=== PATIENT | male | born 1995 | race Caucasian/White ===

== ENCOUNTER 2022-05-28 14:06 | Emergency (ER) | payer OTHER, SELFPAY ==
--- NOTE | ~2022-05-28 | US_ITS ---
EXAMINATION: US ABDOMEN COMPLETE CLINICAL INFORMATION: Pain. COMPARISON: None TECHNIQUE: Real-time imaging of the abdominal viscera. FINDINGS: PANCREAS: Pancreas obscured by bowel gas not well visualized. ABDOMINAL AORTA: Abdominal aorta and IVC were not fully visualized partially obscured by bowel gas, the visualized portion is unremarkable. INFERIOR VENA CAVA: Visualized portions are normal. LIVER: The liver is normal in size. The liver contour is normal. There are diffusely echogenic possibly mild steatosis. No focal hepatic lesion. There is no intrahepatic biliary duct dilatation seen. GALLBLADDER: Normal. The gallbladder is physiologically distended without evidence of stones, sludge, polyps, wall thickening or pericholecystic fluid. COMMON BILE DUCT: Normal in caliber measuring 0.2 cm in diameter. RIGHT KIDNEY: Normal. No hydronephrosis. No renal calculi or focal parenchymal lesions. The kidney measures 10.3 cm in maximum dimension. LEFT KIDNEY: Normal. No hydronephrosis. No renal calculi or focal parenchymal lesions. The kidney measures 10.5 cm in maximum dimension. SPLEEN: Normal. The spleen measures 8.5 cm in maximum dimension. FREE FLUID: None. US/US abdomen complete IMPRESSION: Exam somewhat limited, bowel gas has obscured the pancreas, aorta, IVC and retroperitoneal structures. *No ultrasound evidence of gallbladder disease or gallstones. *Diffusely echogenic liver possibly mild steatosis.
--- NOTE | ~2022-05-28 | CT_ITS ---
EXAMINATION: CT abdomen pelvis w IV con CLINICAL INFORMATION: Reason for Exam epigastric pain COMPARISON: No prior CT available for comparison. TECHNIQUE: Multidetector volumetric imaging was performed from the superior aspect of the liver through the pubic symphysis 85 mL Omnipaque 350 injected Sagittal and coronal reformatted images were obtained on the technologist's workstation. This CT examination was performed using dose optimization techniques as appropriate, variously including the following: *Automated exposure control *Adjustment of mA and/or kV according to patient size (this includes techniques or standardized protocols for targeted exams where dose is matched to indication/reason for exam; i.e. extremities or head) *Use of iterative reconstruction technique DLP: 598 mGy-cm FINDINGS: LOWER THORAX: Included lung bases are clear. HEPATOBILIARY: No focal hepatic lesions. No biliary ductal dilatation. GALLBLADDER: Gallbladder unremarkable. SPLEEN: Spleen is normal in size. PANCREAS: No focal mass or ductal dilatation. STOMACH AND GASTROINTESTINAL TRACT: Stomach is grossly unremarkable. There is no bowel distention or thickening. No CT evidence of appendicitis. ADRENALS: No adrenal nodules. KIDNEYS/URETERS: No hydronephrosis, stones or solid mass lesions. URINARY BLADDER: Urinary bladder is distended. PELVIC VISCERA: Unremarkable PERITONEUM: No free air or fluid. LYMPH NODES: No lymphadenopathy. VASCULAR:Abdominal aorta normal in size, no aneurysm found. BONES, ABDOMINAL WALL AND SOFT TISSUES: Age-appropriate changes of the spine and skeletal system, no destructive osteolytic or osteosclerotic bone lesion found CT/CT abdomen pelvis w IV con IMPRESSION: 1. No CT evidence of acute intra-abdominal process to explain patient's pain symptoms. Normal appendix identified. 2. No evidence of bowel obstruction. No free air or fluid. 3. Distended urinary bladder.
--- NOTE | ~2022-05-28 | XR_ITS ---
EXAMINATION: XR CHEST CLINICAL INFORMATION: Pain COMPARISON: None TECHNIQUE: Frontal view of the chest was obtained. FINDINGS: No significant abnormality is noted involving the heart, lungs, mediastinum, bony thorax or soft tissues. XR/XR chest 1V IMPRESSION: Unremarkable examination.
[2022-05-28 15:48] VITALS: BP 138/79; PULSE 63; RESP 16; TEMP 36.5; O2SAT 98; BMI 28.2
--- NOTE | 2022-05-28 15:48 | ED_ITS ---
HPI - Abdominal Pain General Chief Complaint: Abdominal Pain <ARNOL Tee - Last Filed: 05/28/22 15:54> Stated Complaint: Abd pain <ARNOL Tee - Last Filed: 05/28/22 15:54> Time Seen by Provider: 05/28/22 16:18 <ARNOL Tee - Last Filed: 05/28/22 15:54> Source: patient <ARNOL Alberto - Last Filed: 05/28/22 20:02> Mode of arrival: ambulatory <ARNOL Alberto - Last Filed: 05/28/22 20:02> Limitations: no limitations <ARNOL Alberto Last Filed: 05/28/22 20:02> History of Present Illness HPI narrative: This is a 27-year-old male past medical history significant for hypertension presenting to the emergency department complaints of epigastric pain for about a week. Patient reports that the pain feels like a burning sensation without radiation, tells me it is very uncomfortable. Patient reports that he has a history of gastric ulcers/gastritis, this feels kind of like his typical flare. He tells me at times pain is worse with eating and at times feels burning in his chest. Reports some associated nausea however no vomiting. Tells me he has a heart issue and is followed by a desktop support consultant out of [facility]. Patient tells me he recently moved here from [facility] therefore he has not been taking his typical medications. He does not recall with these medications are. Patient denies chest pain, shortness of breath, vomiting, headache, vision changes, dizziness, poor p.o. intake, changes in bowel habits, changes in urination, testicular pain. <ARNOL Alberto Last Filed: 05/28/22 20:02> MD elicited complaint: abdominal pain <ARNOL Alberto Last Filed: 05/28/22 20:02> Related Data Home Medications: Previous Rx's Medication Instructions Recorded aluminum-mag hydroxide-simethicone 5 ml PO 5XD PRN dyspepsia #355 mL 05/28/22 200 mg-200 mg-20 mg/5 mL oral susp (Maalox Advanced) omeprazole 20 mg capsule,delayed 20 mg PO DAILY #30 caps 05/28/22 release <ARNOL Tee - Last Filed: 05/28/22 15:54> Allergies/Adverse Reactions: Allergies Allergy/AdvReac Type Severity Reaction Status Date / Time No Known Allergies Allergy Verified 05/28/22 15:52 <ARNOL Tee - Last Filed: 05/28/22 15:54> Review of Systems Review of Systems Constitutional : No Weight loss, No Fever, No Chills, No Fatigue, No Malaise ENT/Mouth : No sore throat, No Rhinorrhea Eyes: No Eye Pain, No Swelling, No Redness Cardiovascular : No Chest Pain, No SOB, No Dyspnea on Exertion, No Orthopnea, No Edema, No Palpitations Respiratory : No Cough, No Sputum, No Wheezing Gastrointestinal : No Nausea, No Vomiting, No Diarrhea, No Constipation, + abdominal Pain, No Hematochezia, No Melena Genitourinary : No Dysuria, No Urinary Frequency, No Hematuria, Musculoskeletal : No joint pain, No Myalgias, No Joint Swelling Skin : No Skin Lesions, No rash Neuro : No Weakness, No Numbness, No Dizziness, No Headache Psych : No Anxiety/Panic, No Depression All other systems reviewed and are negative <ARNOL Alberto - Last Filed: 05/28/22 20:02> Yes all other systems are reviewed and are negative <ARNOL Alberto - Last Filed: 05/28/22 20:02> PMFSH Past Medical History Attestation statement: The following information was validated with the patient. <ARNOL Alberto - Last Filed: 05/28/22 20:02> Source: old records reviewed and nursing notes reviewed <ARNOL Alberto - Last Filed: 05/28/22 20:02> Social History Social History: Social History Advance Directives: No Advance Directives Information Provided: No <ARNOL Tee - Last Filed: 05/28/22 15:54> Physical Exam ED Vital Signs: Vital Signs - 24 hr 05/28/22 15:48 Temperature 97.7 F Pulse Rate 63 Respiratory Rate 16 Blood Pressure 138/79 Pulse Oximetry 98 Oxygen Delivery Method Room Air BMI result Body Mass Index 28.2 <ARNOL Tee - Last Filed: 05/28/22 15:54> Vital Signs - 24 hr 05/28/22 15:48 Temperature 97.7 F Pulse Rate 63 Respiratory Rate 16 Blood Pressure 138/79 Pulse Oximetry 98 Oxygen Delivery Method Room Air BMI result Body Mass Index 28.2 vss <ARNOL Alberto - Last Filed: 05/28/22 20:02> Appearance: Alert.? Oriented X3.? No acute distress.? Head: Normocephalic, atraumatic, no step-offs or deformities Eyes: Pupils equal, round and reactive to light.? Neck: Normal inspection.? Neck supple.? CVS: Normal heart rate and rhythm.? Pulses normal.? Respiratory: No respiratory distress.? Breath sounds normal.? Abdomen: Soft and + tenderness to epigastric region.? Skin: Skin warm and dry.? Normal skin color.? Normal skin turgor.? Extremities: No lower extremity edema.? No calf ttp. 5/5 strength to bilateral upper and lower extremities Neuro: Oriented X 3.? No motor deficit.? No sensory deficit. CN 2-12 intact <ARNOL Alberto - Last Filed: 05/28/22 20:02> Course Reevaluation(s) Reevaluation #1: RME - 27yoM [place] speaking x PMHx of HTN presenting to the ED c c/o of epigastric abd pain c associated nausea x 5 days. Believes its related to gastritis/GERD has [place] end[place]. [place] in [place] unknown results. ? valve that doesnt work well per pt. Plan: Labs, CXR, EKG, abd US. Pt sent back to [facility]. Pt is stable. <ARNOL Tee - Last Filed: 05/28/22 15:54> Time: 15:49 <ARNOL Tee - Last Filed: 05/28/22 15:54> Reevaluation #2: CBC appears to be within normal limits. Chemistry with no acute electrolyte abnormalities requiring intervention. Total bilirubin of 2.3. Troponin negative, EKG nonischemic unlikely ACS.. Coags within normal limits. Ultrasound of abdomen with no ultrasound evidence of gallbladder disease or gallstones. Chest x-ray unremarkable. Pending CT of the abdomen and pelvis and re-evaluation. <ARNOL Alberto - Last Filed: 05/28/22 20:02> Time: 19:10 <ARNOL Alberto - Last Filed: 05/28/22 20:02> Reevaluation #3: No acute findings on CT of the abdomen and pelvis. P.o. challenge done and patient tolerated fluids and food well. Repeat exam with no epigastric tenderness patient reports feeling much better at this time. Symptom free. Will discharge him home with GI follow-up. Educated on worrisome signs and symptoms and when to return. Comfortable discharge <ARNOL Alberto - Last Filed: 05/28/22 20:02> Time: 20:01 <ARNOL Alberto - Last Filed: 05/28/22 20:02> Medications Administered Discontinued Medications Generic Name Dose Route Start Last Admin Trade Name Freq PRN Reason Stop Dose Admin Al Hydroxide/Mg Hydroxide 30 ml 05/28/22 17:30 05/28/22 17:45 Magnesium Hydrox/Alum Hydrox 30 Ml Oral.Susp PO 05/28/22 17:31 30 ml ONCE ONE Administration Belladonna Alkaloids/Phenobarbital 10 ml 05/28/22 17:30 05/28/22 17:45 Phenobarb/Hyoscy/Atropine/Scop 10 Ml Elixir PO 05/28/22 17:31 10 ml ONCE ONE Administration Sodium Chloride 1,000 mls @ 999 mls/hr 05/28/22 17:45 05/28/22 17:45 Ns IV 05/28/22 18:45 999 mls/hr .Q1H1M IVA Administration Iohexol 100 ml 05/28/22 19:00 05/28/22 19:00 Iohexol 350 Mg/Ml 100 Ml Infus..Btl IV 05/28/22 19:01 85 ml ONCE ONE Administration Ondansetron HCl 4 mg 05/28/22 17:30 05/28/22 17:45 Ondansetron Odt 4 Mg Tab.Rapdis TRANSLINGU 05/28/22 17:31 4 mg ONCE ONE Administration <ARNOL Tee - Last Filed: 05/28/22 15:54> Medications Administered Discontinued Medications Generic Name Dose Route Start Last Admin Trade Name Freq PRN Reason Stop Dose Admin Al Hydroxide/Mg Hydroxide 30 ml 05/28/22 17:30 05/28/22 17:45 Magnesium Hydrox/Alum Hydrox 30 Ml Oral.Susp PO 05/28/22 17:31 30 ml ONCE ONE Administration Belladonna Alkaloids/Phenobarbital 10 ml 05/28/22 17:30 05/28/22 17:45 Phenobarb/Hyoscy/Atropine/Scop 10 Ml Elixir PO 05/28/22 17:31 10 ml ONCE ONE Administration Sodium Chloride 1,000 mls @ 999 mls/hr 05/28/22 17:45 05/28/22 17:45 Ns IV 05/28/22 18:45 999 mls/hr .Q1H1M IVA Administration Iohexol 100 ml 05/28/22 19:00 05/28/22 19:00 Iohexol 350 Mg/Ml 100 Ml Infus..Btl IV 05/28/22 19:01 85 ml ONCE ONE Administration Ondansetron HCl 4 mg 05/28/22 17:30 05/28/22 17:45 Ondansetron Odt 4 Mg Tab.Rapdis TRANSLINGU 05/28/22 17:31 4 mg ONCE ONE Administration <ARNOL Alberto - Last Filed: 05/28/22 20:02> MDM - Abdominal Pain MDM Narrative Medical decision making narrative: 1620 This 27-year-old male presents with epigastric pain for about a week worsening, reports he has a history of gastric ulcers gastritis, pain worse with eating, some associated nausea. Physical examination benign. TTP to epigastric region. Regular rate and rhythm. Lungs clear. Neuro nonfocal. Hemodynamically stable. Likely gastritis versus GERD versus gastric ulcers. Unlikely acute abdomen, appendicitis, cholecystitis, pancreatitis. Will obtain basic labs, urine, imaging was ordered from triage. <ARNOL Alberto - Last Filed: 05/28/22 20:02> Medical Records Attestation: I reviewed the patient's medical records. <ARNOL Alberto - Last Filed: 05/28/22 20:02> Lab Data Attestation: I reviewed the patient's lab results. <ARNOL Alberto - Last Filed: 05/28/22 20:02> Result diagrams: : 05/28/22 16:44 05/28/22 16:44 <ARNOL Tee - Last Filed: 05/28/22 15:54> Labs: Lab Results 05/28/22 05/28/22 05/28/22 Range/Units 16:44 16:44 16:44 WBC 7.3 (4.8-10.8) X10*3/uL RBC 4.95 (4.60-5.80) X10*6/uL Hgb 15.5 (14.0-18.0) g/dl Hct 45.4 (42.0-52.0) % MCV 91.7 (80.0-98.0) fL MCH 31.3 (27.0-33.0) pg MCHC 34.1 (31.0-36.0) g/dl RDW 11.9 (11.0-16.0) % Plt Count 188 (160-400) X10*3/uL MPV 11.8 (9.4-12.4) fL Immature Gran % (Auto) 0.1 (0.0-0.4) % Neut % (Auto) 47.7 (45-73) % Lymph % (Auto) 40.3 H (20-40) % [place] % (Auto) 10.3 (2-11) % Eos % (Auto) 1.5 (0-4) % Baso % (Auto) 0.1 (0-2) % Lymph # (Auto) 2.9 (1.2-4.9) X10*3/uL [place] # (Auto) 0.8 (0.1-1.2) X10*3/uL Eos # (Auto) 0.1 (0.0-0.4) X10*3/uL Baso # (Auto) 0.0 (0.0-0.2) X10*3/uL Abs Immat Gran (auto) 0.01 (0.00-0.03) X10*3/uL Absolute Neuts (auto) 3.5 (2.0-8.3) x10*3/uL Absolute Nucleated RBC 0.000 (0.0-0.012) X10*3/uL Nucleated RBC % (auto) 0.0 (0.0-0.2) /100WBC PT 10.7 (10.0-13.1) SEC INR 0.9 (0.9-1.1) Sodium 140 (135-145) mmol/L Potassium 4.2 (3.3-5.1) mmol/L Chloride 103 (96-108) mmol/L Carbon Dioxide 26 (22-29) mmol/L Anion Gap 15 (12-20) BUN 15 (9-16) mg/dL Creatinine 1.24 (0.5-1.4) mg/dL Estim Creat Clear Calc 90.8 Estimated GFR > 60 Random Glucose 92 (60-115) mg/dL Calcium 9.5 (8.4-10.2) mg/dL Magnesium 2.2 (1.6-2.6) mg/dL Total Bilirubin 2.3 H (0.0-1.0) mg/dL AST 29 (5-37) U/L ALT 29 (0-40) U/L Alkaline Phosphatase 60 (39-117) U/L Lactate Dehydrogenase 225 (118-273) U/L Troponin I High Sens (<3.5-35.0) ng/L Total Protein 8.1 H (6.5-8.0) g/dL Albumin 4.6 (3.5-5.0) g/dL Lipase 65 (8-78) U/L Hold [facility] 05/28/22 05/28/22 Range/Units 16:44 16:44 WBC (4.8-10.8) X10*3/uL RBC (4.60-5.80) X10*6/uL Hgb (14.0-18.0) g/dl Hct (42.0-52.0) % MCV (80.0-98.0) fL MCH (27.0-33.0) pg MCHC (31.0-36.0) g/dl RDW (11.0-16.0) % Plt Count (160-400) X10*3/uL MPV (9.4-12.4) fL Immature Gran % (Auto) (0.0-0.4) % Neut % (Auto) (45-73) % Lymph % (Auto) (20-40) % [place] % (Auto) (2-11) % Eos % (Auto) (0-4) % Baso % (Auto) (0-2) % Lymph # (Auto) (1.2-4.9) X10*3/uL [place] # (Auto) (0.1-1.2) X10*3/uL Eos # (Auto) (0.0-0.4) X10*3/uL Baso # (Auto) (0.0-0.2) X10*3/uL Abs Immat Gran (auto) (0.00-0.03) X10*3/uL Absolute Neuts (auto) (2.0-8.3) x10*3/uL Absolute Nucleated RBC (0.0-0.012) X10*3/uL Nucleated RBC % (auto) (0.0-0.2) /100WBC PT (10.0-13.1) SEC INR (0.9-1.1) Sodium (135-145) mmol/L Potassium (3.3-5.1) mmol/L Chloride (96-108) mmol/L Carbon Dioxide (22-29) mmol/L Anion Gap (12-20) BUN (9-16) mg/dL Creatinine (0.5-1.4) mg/dL Estim Creat Clear Calc Estimated GFR Random Glucose (60-115) mg/dL Calcium (8.4-10.2) mg/dL Magnesium (1.6-2.6) mg/dL Total Bilirubin (0.0-1.0) mg/dL AST (5-37) U/L ALT (0-40) U/L Alkaline Phosphatase (39-117) U/L Lactate Dehydrogenase (118-273) U/L Troponin I High Sens < 3.5 (<3.5-35.0) ng/L Total Protein (6.5-8.0) g/dL Albumin (3.5-5.0) g/dL Lipase (8-78) U/L Hold [place] See Note <ARNOL Tee - Last Filed: 05/28/22 15:54> Lab Results 05/28/22 05/28/22 05/28/22 Range/Units 16:44 16:44 16:44 WBC 7.3 (4.8-10.8) X10*3/uL RBC 4.95 (4.60-5.80) X10*6/uL Hgb 15.5 (14.0-18.0) g/dl Hct 45.4 (42.0-52.0) % MCV 91.7 (80.0-98.0) fL MCH 31.3 (27.0-33.0) pg MCHC 34.1 (31.0-36.0) g/dl RDW 11.9 (11.0-16.0) % Plt Count 188 (160-400) X10*3/uL MPV 11.8 (9.4-12.4) fL Immature Gran % (Auto) 0.1 (0.0-0.4) % Neut % (Auto) 47.7 (45-73) % Lymph % (Auto) 40.3 H (20-40) % [place] % (Auto) 10.3 (2-11) % Eos % (Auto) 1.5 (0-4) % Baso % (Auto) 0.1 (0-2) % Lymph # (Auto) 2.9 (1.2-4.9) X10*3/uL [place] # (Auto) 0.8 (0.1-1.2) X10*3/uL Eos # (Auto) 0.1 (0.0-0.4) X10*3/uL Baso # (Auto) 0.0 (0.0-0.2) X10*3/uL Abs Immat Gran (auto) 0.01 (0.00-0.03) X10*3/uL Absolute Neuts (auto) 3.5 (2.0-8.3) x10*3/uL Absolute Nucleated RBC 0.000 (0.0-0.012) X10*3/uL Nucleated RBC % (auto) 0.0 (0.0-0.2) /100WBC PT 10.7 (10.0-13.1) SEC INR 0.9 (0.9-1.1) Sodium 140 (135-145) mmol/L Potassium 4.2 (3.3-5.1) mmol/L Chloride 103 (96-108) mmol/L Carbon Dioxide 26 (22-29) mmol/L Anion Gap 15 (12-20) BUN 15 (9-16) mg/dL Creatinine 1.24 (0.5-1.4) mg/dL Estim Creat Clear Calc 90.8 Estimated GFR > 60 Random Glucose 92 (60-115) mg/dL Calcium 9.5 (8.4-10.2) mg/dL Magnesium 2.2 (1.6-2.6) mg/dL Total Bilirubin 2.3 H (0.0-1.0) mg/dL AST 29 (5-37) U/L ALT 29 (0-40) U/L Alkaline Phosphatase 60 (39-117) U/L Lactate Dehydrogenase 225 (118-273) U/L Troponin I High Sens (<3.5-35.0) ng/L Total Protein 8.1 H (6.5-8.0) g/dL Albumin 4.6 (3.5-5.0) g/dL Lipase 65 (8-78) U/L Hold [place] 05/28/22 05/28/22 Range/Units 16:44 16:44 WBC (4.8-10.8) X10*3/uL RBC (4.60-5.80) X10*6/uL Hgb (14.0-18.0) g/dl Hct (42.0-52.0) % MCV (80.0-98.0) fL MCH (27.0-33.0) pg MCHC (31.0-36.0) g/dl RDW (11.0-16.0) % Plt Count (160-400) X10*3/uL MPV (9.4-12.4) fL Immature Gran % (Auto) (0.0-0.4) % Neut % (Auto) (45-73) % Lymph % (Auto) (20-40) % [place] % (Auto) (2-11) % Eos % (Auto) (0-4) % Baso % (Auto) (0-2) % Lymph # (Auto) (1.2-4.9) X10*3/uL [place] # (Auto) (0.1-1.2) X10*3/uL Eos # (Auto) (0.0-0.4) X10*3/uL Baso # (Auto) (0.0-0.2) X10*3/uL Abs Immat Gran (auto) (0.00-0.03) X10*3/uL Absolute Neuts (auto) (2.0-8.3) x10*3/uL Absolute Nucleated RBC (0.0-0.012) X10*3/uL Nucleated RBC % (auto) (0.0-0.2) /100WBC PT (10.0-13.1) SEC INR (0.9-1.1) Sodium (135-145) mmol/L Potassium (3.3-5.1) mmol/L Chloride (96-108) mmol/L Carbon Dioxide (22-29) mmol/L Anion Gap (12-20) BUN (9-16) mg/dL Creatinine (0.5-1.4) mg/dL Estim Creat Clear Calc Estimated GFR Random Glucose (60-115) mg/dL Calcium (8.4-10.2) mg/dL Magnesium (1.6-2.6) mg/dL Total Bilirubin (0.0-1.0) mg/dL AST (5-37) U/L ALT (0-40) U/L Alkaline Phosphatase (39-117) U/L Lactate Dehydrogenase (118-273) U/L Troponin I High Sens < 3.5 (<3.5-35.0) ng/L Total Protein (6.5-8.0) g/dL Albumin (3.5-5.0) g/dL Lipase (8-78) U/L Hold Green Top See Note <ARNOL Alberto - Last Filed: 05/28/22 20:02> Critical Care Time Critical Care Time Critical Care Time: No <ARNOL Alberto - Last Filed: 05/28/22 20:02> Discharge Plan Discharge Clinical Impression: GERD (gastroesophageal reflux disease), Acute epigastric pain <ARNOL Tee Last Filed: 05/28/22 15:54> Patient Disposition: Home, Self-Care <ARNOL Tee Last Filed: 05/28/22 15:54> Instructions: Gastroesophageal Reflux Disease (ED), Epigastric Pain (ED) <ARNOL Tee Last Filed: 05/28/22 15:54> Additional Instructions: Take your medications as prescribed. If you were prescribed antibiotics today, it is important that you take your medication to their entirety, do not skip any doses, do not finish them early. Follow-up with your primary care provider this week. Please follow-up with gastroenterology. Return to the emergency department with new or worsening symptoms. Such as fevers, chills, chest pain, shortness of breath, nausea, vomiting, dizziness, headache, vision changes, lethargy In case of emergency call 911 [place] [facility] seg?n lo prescrito. Si le recetaron antibi?ticos hoy, es importante que tome echavarria medicamento en echavarria totalidad, no se salte ninguna dosis, no los termine antes de tiempo. Seguimiento con echavarria proveedor de atenci?n primaria esta semana. Por favor, seguimiento con gastroenterolog?a. Regrese al departamento de emergencias con s?ntomas nuevos o que empeoran. Dav fiebre, escalofr?os, dolor de pecho, dificultad para respirar, n?useas, v?mitos, mareos, dolor de maria antonia, cambios en la visi?n, letargo En loly de emergencia llama al 911 CT/CT abdomen pelvis w IV con IMPRESSION: 1.? No CT evidence of acute intra-abdominal process to explain patient's pain symptoms. Normal appendix identified. 2.? No evidence of bowel obstruction. No free air or fluid. 3.? Distended urinary bladder. ?US/US abdomen complete IMPRESSION: Exam somewhat limited, bowel gas has obscured the pancreas, aorta, IVC and retroperitoneal structures. ? ? *No ultrasound evidence of gallbladder disease or gallstones. ? *Diffusely echogenic liver possibly mild steatosis. ?XR/XR chest 1V IMPRESSION: Unremarkable examination. <ARNOL Tee - Last Filed: 05/28/22 15:54> Prescriptions: New omeprazole 20 mg capsule,delayed release(DR/EC) 20 mg PO DAILY Qty: 30 0RF alum-mag hydroxide-simeth [Maalox Advanced] 200-200-20 mg/5 mL suspension 5 ml PO 5XD PRN (Reason: dyspepsia) Qty: 355 0RF Rx Instructions: administer between meals and at bedtime <ARNOL Tee - Last Filed: 05/28/22 15:54> Referrals: [facility] [place] [facility] [Provider Group] - 2 days Physician,Unknown J [Primary Care Provider] - 2 days <ARNOL Tee - Last Filed: 05/28/22 15:54> Stand Alone Forms: Work/School Release <ARNOL Tee - Last Filed: 05/28/22 15:54>
--- NOTE | 2022-05-28 16:35 | ECG_ITS ---
Test Reason : ABDOMINAL PAIN Blood Pressure : / mmHG Vent. Rate : 056 BPM Atrial Rate : 056 BPM P-R Int : 164 ms QRS Dur : 088 ms QT Int : 400 ms P-R-T Axes : 042 002 -01 degrees QTc Int : 386 ms Sinus bradycardia Intra-ventricular conduction delay Borderline ECG No previous ECGs available Referred By: Angela Maldonado Electronically Signed By:ROX CAGLE MD
[2022-05-28 16:51] LABS: MANUAL DIFF FLAG NO
[2022-05-28 17:03] LABS: INTERNATIONAL NORM RATIO 0.9 (0.9-1.1); Prothrombin Time 10.7 SEC (10.0-13.1)
[2022-05-28 17:11] LABS: Basophils Percent Auto 0.1 % (0-2); Eosinophils Absolute Auto 0.1 X10*3/uL (0.0-0.4); Eosinophils Percent Auto 1.5 % (0-4); Hematocrit 45.4 % (42.0-52.0); Hemoglobin 15.5 g/dl (14.0-18.0); Imm Gran Abs Auto 0.01 X10*3/uL (0.00-0.03); Imm Gran Pct Auto 0.1 % (0.0-0.4); Lymphocytes Absolute Auto 2.9 X10*3/uL (1.2-4.9); Lymphocytes Percent Auto 40.3 % (20-40); Mean Corpuscular HGB Conc 34.1 g/dl (31.0-36.0); Mean Corpuscular Hemoglobin 31.3 pg (27.0-33.0); Mean Corpuscular Volume 91.7 fL (80.0-98.0); Mean Platelet Volume 11.8 fL (9.4-12.4); Monocytes Absolute Auto 0.8 X10*3/uL (0.1-1.2); Monocytes Percent Auto 10.3 % (2-11); Neutrophils Absolute Auto 3.5 x10*3/uL (2.0-8.3); Neutrophils Percent Auto 47.7 % (45-73); Platelet Count 188 X10*3/uL (160-400); Red Blood Count 4.95 X10*6/uL (4.60-5.80); Red Cell Distribution Width 11.9 % (11.0-16.0); White Blood Count 7.3 X10*3/uL (4.8-10.8)
[2022-05-28 17:13] LABS: Alanine Aminotransferase 29 U/L (0-40); Albumin Level 4.6 g/dL (3.5-5.0); Alkaline Phosphatase 60 U/L (39-117); Anion Gap 15 (12-20); Aspartate Amino Transferase 29 U/L (5-37); Bilirubin Total 2.3 mg/dL (0.0-1.0); Blood Urea Nitrogen 15 mg/dL (9-16); Calcium 9.5 mg/dL (8.4-10.2); Carbon Dioxide 26 mmol/L (22-29); Chloride 103 mmol/L (96-108); Creatinine Clr Calc Pharmacy 90.8; Estimated Glomerular Filt Rate > 60; Glucose Random 92 mg/dL (60-115); Lactate Dehydrogenase 225 U/L (118-273); Lipase 65 U/L (8-78); Magnesium 2.2 mg/dL (1.6-2.6); Potassium 4.2 mmol/L (3.3-5.1); Sodium 140 mmol/L (135-145); Total Protein 8.1 g/dL (6.5-8.0)
[2022-05-28 17:15] LABS: Troponin-I High Sensitivity < 3.5 ng/L (<3.5-35.0)
[2022-05-28] MEDS: Magnesium Hydrox/Alum Hydrox 30 ML ORAL.SUSP PO (17:45)
[2022-05-28] MEDS: PHENobarb/Hyoscy/Atropine/Scop 10 ML ELIXIR PO (17:45)
[2022-05-28] MEDS: 0.9 % Sodium Chloride 1,000 ML 999 ML IV (17:45)
[2022-05-28] MEDS: Ondansetron ODT 4 MG TAB.RAPDIS TRANSLINGU (17:45)
[2022-05-28] MEDS: iohexoL 350 MG/ML 100 ML INFUS..BTL IV (19:00)
== END 2022-05-28 20:12 | disposition home or self-care (01) ==
PROVIDERS: Physician Assistant; Physician Assistant Medical; Emergency Provider Emergency Medicine
DX: K21.9 Gastro-esophageal reflux disease without esophagitis (principal); R10.13 Epigastric pain; R11.0 Nausea; I10 Essential (primary) hypertension
CPT/HCPCS: 36415; 71045; 74177; 76700; 80053; 83615; 83690; 83735; 84484; 85025; 85610; 93005; 99284; Q9967

== ENCOUNTER 2022-06-05 11:58 | Emergency (ER) | payer OTHER, SELFPAY ==
--- NOTE | 2022-06-05 12:10 | ED.GENADULT ---
HPI - General Adult General Chief complaint: General Medical Stated complaint: Medication refill Time Seen by Provider: 06/05/22 12:04 Source: patient and park interpreter Mode of arrival: ambulatory Limitations: no limitations History of Present Illness HPI narrative: 27-year-old male presents to the ER requesting a medication refill. He states he has been on bisoprolol fumarate 10 mg and his prescription was just stool and on his mailbox. He has not had for 3 days and reports feeling some palpitations. He is here requesting a refill. He denies any other physical complaints. MD complaint: Medication refill Onset (ago): day(s) (3) Radiation: non-radiation Severity: mild Pain Consistency: intermittent Relieving factors: none Exacerbating factors: none Associated symptoms: denies other symptoms Treatments prior to arrival: none Related Data Previous Rx's Medication Instructions Recorded aluminum-mag hydroxide-simethicone 5 ml PO 5XD PRN dyspepsia #355 mL 05/28/22 200 mg-200 mg-20 mg/5 mL oral susp (Maalox Advanced) omeprazole 20 mg capsule,delayed 20 mg PO DAILY #30 caps 05/28/22 release bisoprolol fumarate 10 mg tablet 10 mg PO DAILY #30 tabs 06/05/22 Allergies Allergy/AdvReac Type Severity Reaction Status Date / Time No Known Allergies Allergy Verified 06/05/22 12:14 Review of Systems Review of Systems: Constitutional: No Fever, No Chills Cardiovascular: No Chest Pain, No SOB, No Orthopnea, No Edema, +palpitations Respiratory: No Cough, No Sputum Gastrointestinal: No Nausea, No Vomiting, No Diarrhea, No abdominal Pain Musculoskeletal: No joint pain, No Myalgias Neuro: No Weakness, No Numbness, No Dizziness, No Headache Psych:+Anxiety/Panic, No Depression PMFSH Social History Social History Advance Directives: No Advance Directives Information Provided: No Physical Exam ED Vital Signs: Vital Signs - 24 hr 06/05/22 12:16 Temperature 97.0 F Pulse Rate 63 Respiratory Rate 16 Blood Pressure 119/71 Pulse Oximetry 99 Oxygen Delivery Method Room Air BMI result Body Mass Index 25.7 Appearance: Alert. Oriented X3. No acute distress. HEENT: normal external inspection CVS: Normal heart rate and rhythm. Pulses normal. Respiratory: No respiratory distress. Speaks in complete sentences. Skin: Skin warm and dry. Normal skin color. Normal skin turgor. No rashes. Extremities: Normal inspection x4, normal range of motion. Neuro: Oriented X 3 grossly normal, nonfocal, steady gait. Course Course Course Narrative: 27-year-old male with history of hypertension presents to the ER for refill of his beta-angelo. His prescription recently still 1 out of his mailbox when he had it sent to his house. He has been without for 3 days. On arrival to the ER his vital signs are stable, and no tachycardia. BP 119/71. He appears well. Exam unremarkable. Will send 1 month's worth of his antihypertensive medication to [facility]. He will follow-up with his PCP for additional refills. Stable for DC. Discharge Plan Discharge Clinical Impression: Encounter for medication refill Patient Disposition: Home, Self-Care Instructions: Hypertension (ED) Additional Instructions: One month supply of bisoprolol has been sent to [facility] on [facility] . Follow-up with her primary care doctor for refills. Prescriptions: New bisoprolol fumarate 10 mg tablet 10 mg PO DAILY Qty: 30 0RF No Action omeprazole 20 mg capsule,delayed release(DR/EC) 20 mg PO DAILY Qty: 30 0RF alum-mag hydroxide-simeth [Maalox Advanced] 200-200-20 mg/5 mL suspension 5 ml PO 5XD PRN (Reason: dyspepsia) Qty: 355 0RF Rx Instructions: administer between meals and at bedtime Print Language: [place]
[2022-06-05 12:16] VITALS: BP 119/71; PULSE 63; RESP 16; TEMP 36.1; O2SAT 99; BMI 25.7
== END 2022-06-05 12:53 | disposition home or self-care (01) ==
PROVIDERS: Emergency Provider Emergency Medicine Emergency Medical Services
DX: Z76.0 Encounter for issue of repeat prescription (principal); Z79.899 Other long term (current) drug therapy
CPT/HCPCS: 99283

== ENCOUNTER 2022-09-20 09:42 | Emergency (ER) | payer OTHER, SELFPAY ==
[2022-09-20 09:59] VITALS: BP 139/74; PULSE 58; RESP 16; TEMP 36.1; O2SAT 97; BMI 38.8
[2022-09-20] MEDS: Cyclobenzaprine HCl 10 MG TABLET PO (13:02)
[2022-09-20] MEDS: Lidocaine 4 % Patch ADH..PATCH 1 PATCH TRANSDERMA (13:04)
[2022-09-20] MEDS: Ketorolac Tromethamine 30 MG/ML VIAL IM (13:04)
[2022-09-20 13:16] LABS: Appearance Urine Clear; Color Urine Yellow; Glucose Urine UA Negative (Negative); Leukocyte Esterase Urine Negative (Negative); Nitrite Urine Negative (Negative); PH 6.5 (5.0-9.0); Specific Gravity - Urine 1.025 (1.005-1.025); Urine Blood Negative (Negative); Urine Ketones Negative (Negative); Urine Protein Negative (Neg-Trace)
--- NOTE | 2022-09-20 14:03 | ED_ITS ---
HPI - Back Pain/Injury General Chief Complaint: Back Pain/Injury Stated Complaint: Back pain Time Seen by Provider: 09/20/22 12:33 Source: patient Mode of arrival: ambulatory History of Present Illness HPI Narrative: 27-year-old male with no significant past medical history presenting to the ED complaining of a mid/low back pain radiating up back x2 months. Reports plays football which may have exacerbated/started symptoms. Denies direct injury/trauma or fall, CP/SOB, hematuria/dysuria, numbness/tingling, weakness, urinary incontinence/retention MD elicited complaint: back pain Onset (ago): month(s) Related Data Previous Rx's Medication Instructions Recorded aluminum-mag hydroxide-simethicone 5 ml PO 5XD PRN dyspepsia #355 mL 05/28/22 200 mg-200 mg-20 mg/5 mL oral susp (Maalox Advanced) omeprazole 20 mg capsule,delayed 20 mg PO DAILY #30 caps 05/28/22 release bisoprolol fumarate 10 mg tablet 10 mg PO DAILY #30 tabs 06/05/22 acetaminophen 500 mg tablet 500 mg PO Q6H PRN fever or pain 09/20/22 (Tylenol Extra Strength) #14 tabs cyclobenzaprine 5 mg tablet 5 mg PO Q8H PRN pain (scale score 09/20/22 7-10) 5 days #14 tabs lidocaine 5 % topical patch 1 patch topical DAILY PRN pain #30 09/20/22 (Lidoderm) ea naproxen 500 mg tablet 500 mg PO BID PRN pain 10 days #20 09/20/22 tabs Allergies Allergy/AdvReac Type Severity Reaction Status Date / Time No Known Allergies Allergy Verified 06/05/22 12:14 Review of Systems Review of Systems: Constitutional: No Weight loss, No Fever, No Chills ENT/Mouth: No Ear Pain, No Nasal Congestion, No Sinus Pain, No Hoarseness, No sore throat, No Rhinorrhea, No Swallowing Difficulty Cardiovascular: No Chest Pain, No SOB Respiratory: No Cough, No Sputum Gastrointestinal: No Nausea, No Vomiting, No Abdominal pain Genitourinary: No Dysuria, No Urinary Frequency, No Hematuria, No Urinary Incontinence/retention, No Flank Pain Musculoskeletal:+ joint pain, No Myalgias, No Joint Swelling Skin: No Skin Lesions, No rash Neuro: No Weakness, No Numbness, No Paresthesias Yes all other systems are reviewed and are negative Constitutional: Constitutional: Reports as per [facility] Past Medical History Attestation statement: The following information was validated with the patient. Social History Social History Advance Directives: No Advance Directives Information Provided: No Physical Exam Vital Signs: Vital Signs: Last Vital Signs Temp 97 F 09/20/22 09:59 Pulse 58 09/20/22 09:59 Resp 16 09/20/22 09:59 BP 139/74 09/20/22 09:59 Pulse Ox 97 09/20/22 09:59 O2 Del Method 09/20/22 09:59 BMI result Body Mass Index 38.8 Const: General: cooperative, healthy appearing and no acute distress Orientation/consciousness: patient oriented x3 Limitations: no limitations HEENT: Head: Yes normal to inspection and Yes atraumatic Ears: hearing grossly normal bilaterally General nose exam: Normal external nose present Face and sinus: Yes normal facial exam Eyes: General: appearance normal, both eyes and all related structures EOM: EOMs intact bilaterally Neck: Neck: Yes normal visual inspection and Yes no meningeal signs Resp: Effort & Inspection: normal respiratory effort and no respiratory distress Auscultation: clear to auscultation bilaterally Cardio: Rate: regular rate Heart sounds: S1 normal heart sound present and S2 normal heart sound present GI: Inspection: Yes normal to inspection Palpation (GI): Soft to palpation, nontender, no guarding and not rigid : General: Yes no CVA tenderness Back/Spine/Pelvis: Other: No midline thoracic/lumbar spinous tenderness/step-off or deformity. + bilateral lower thoracic/upper lumbar MSK tenderness to palpation. Back: no CVA tenderness Cervical Spine: cervical ROM normal and No cervical muscular tenderness Skin: Rashes: no rashes Wounds: no wounds Neuro: Other: Strength intact throughout. No saddle anesthesia. Sensation intact to light touch. Neurovascular intact distally General: patient oriented x3, gait normal, tone normal, moves all extremities, no meningeal signs and no focal motor deficits Gait exam (Neuro): Normal gait present Motor exam (neuro): 5/5 motor strength present throughout Extrem: General: Yes normal to inspection Course Course Course Narrative: -UA unremarkable, no blood. Patient reports symptomatic improvement after medications given in the ED. Results discussed with patient including worrisome signs and symptoms and strict return precautions, and when to return to the emergency department. They verbalized understanding and feel safe for discharge at this time. Medications Administered Discontinued Medications Generic Name Dose Route Start Last Admin Trade Name Aisha PRN Reason Stop Dose Admin Cyclobenzaprine HCl 10 mg 09/20/22 12:50 09/20/22 13:02 Cyclobenzaprine Hcl 10 Mg Tablet PO 09/20/22 12:51 10 mg ONCE ONE Administration Ketorolac Tromethamine 30 mg 09/20/22 12:50 09/20/22 13:04 Ketorolac Tromethamine 30 Mg/Ml Vial IM 09/20/22 12:51 30 mg ONCE ONE Administration Lidocaine 1 patch 09/20/22 12:50 09/20/22 13:04 Lidocaine 4 % Patch Adh..Patch TRANSDERMA 09/20/22 12:51 1 patch ONCE ONE Administration Protocol Medical Decision Making Medical Decision Making [facility] Narrative: 27-year-old male with no significant past medical history presenting to the ED complaining of a mid/low back pain radiating up back x2 months. On exam vital signs stable, NAD, nontoxic appearing, no midline spinous tenderness throat or red flag symptoms. MSK tenderness reproducible, no CVAT. No focal deficits, N/C with steady gait. Concern for MSK pain/strain vs ? Renal stone/pyelo. Lower suspicion for cauda equina/cord compression, epidural abscess, PE/pneumonia Plan: UA, pain control Please refer to course for remaining clinical decision making, interpretation of labs/imaging results, and discussions with consultants and/or family members. Differential Diagnosis Differential Diagnoses: The differential diagnosis associated with the presentation includes as above Lab Data [facility] Lab Attestation statement: I reviewed the patient's lab results. Labs: Lab Results 09/20/22 Range/Units 12:58 Urine Color Yellow Urine Appearance Clear Urine pH 6.5 (5.0-9.0) Ur Specific [place] 1.025 (1.005-1.025) Urine Protein Negative (Neg-Trace) mg/dL Urine Glucose (UA) Negative (Negative) mg/dL Urine Ketones Negative (Negative) mg/dL Urine Blood Negative (Negative) Urine Nitrite Negative (Negative) Ur Leukocyte Esterase Negative (Negative) Prescription Management I considered prescription management with: Pain Medication Discharge Plan Discharge Clinical Impression: Thoracic back pain Patient Disposition: Home, Self-Care Instructions: Thoracic Pain (ED) Additional Instructions: Your pain is likely musculoskeletal Flexeril is a muscle relaxer, take at night as it makes you drowsy, do not d rive, drink alcohol, or operate machinery while taking it Naproxen as an anti-inflammatory / pain medication, take with food Lidoderm patches are numbing patches, apply to painful area In addition take Tylenol at home If symptoms persist or worsen, pain becomes unbearable, you developed urinary retention or incontinence, or weakness return to the ED Es probable que echavarria dolor sea musculoesquel?flash Flexeril es un relajante muscular, t?sammy por la noche ya que te adormece, no conduzcas, bebas alcohol ni operes maquinaria mientras lo wilmer. Naproxeno fernando medicamento antiinflamatorio/analg?sico, t?hines con alimentos Los parches de Lidoderm son parches anest?sicos, se aplican en el ?radhika dolorida Adem?s alesha Tylenol en casa Si los s?ntomas persisten o empeoran, el dolor se vuelve insoportable, desarroll? retenci?n urinaria o incontinencia, o debilidad, regrese al servicio de urgencias. Prescriptions: New acetaminophen [Tylenol Extra Strength] 500 mg tablet 500 mg PO Q6H PRN (Reason: fever or pain) Qty: 14 0RF lidocaine [Lidoderm] 5 % adhesive patch,medicated 1 patch topical DAILY MDD remove after 12 hours PRN (Reason: pain) Qty: 30 0RF Rx Instructions: leave on most painful area for up to 12 hrs naproxen 500 mg tablet 500 mg PO BID PRN (Reason: pain) 10 Days Qty: 20 0RF cyclobenzaprine 5 mg tablet 5 mg PO Q8H PRN (Reason: pain (scale score 7-10)) 5 Days Qty: 14 0RF No Action omeprazole 20 mg capsule,delayed release(DR/EC) 20 mg PO DAILY Qty: 30 0RF alum-mag hydroxide-simeth [Maalox Advanced] 200-200-20 mg/5 mL suspension 5 ml PO 5XD PRN (Reason: dyspepsia) Qty: 355 0RF Rx Instructions: administer between meals and at bedtime bisoprolol fumarate 10 mg tablet 10 mg PO DAILY Qty: 30 0RF Referrals: Physician,Unknown J [Primary Care Provider] - 3 days Stand Alone Forms: Work/School Release Interventions: ED Discharge Assessment Last Done: 09/20/22 14:20 Discharge Date/Time: 09/20/22 14:21 Print Language: [place]ese
== END 2022-09-20 14:21 | disposition home or self-care (01) ==
PROVIDERS: Physician Assistant; Emergency Provider Student in an Organized Health Care Education/Training Program
DX: M54.50 Low back pain, unspecified (principal); M54.6 Pain in thoracic spine; Z79.899 Other long term (current) drug therapy
CPT/HCPCS: 81003; 96372; 99283; 99284; J1885

== ENCOUNTER 2023-05-10 19:36 | Emergency (ER) | payer MEDICAID, SELFPAY ==
--- NOTE | 2023-05-10 | ECG_ITS ---
Test Reason : CHEST PAIN Blood Pressure : / mmHG Vent. Rate : 073 BPM Atrial Rate : 073 BPM P-R Int : 160 ms QRS Dur : 094 ms QT Int : 350 ms P-R-T Axes : 042 001 003 degrees QTc Int : 385 ms Normal sinus rhythm Normal ECG When compared with ECG of 28-MAY-2022 17:05, No significant change was found Referred By: Generic ED Physician Electronically Signed By:ROX CAGLE MD
--- NOTE | ~2023-05-10 | XR_ITS ---
EXAMINATION: XR CHEST CLINICAL INFORMATION: Chest pain COMPARISON: None available. TECHNIQUE: Frontal view of the chest was obtained. FINDINGS: No significant abnormality is noted involving the heart, lungs, mediastinum, bony thorax or soft tissues. XR/XR chest 1V IMPRESSION: Unremarkable chest examination.
[2023-05-10 19:44] VITALS: BP 149/103; PULSE 88; RESP 20; TEMP 36.6; O2SAT 98; BMI 28.7
--- NOTE | 2023-05-10 19:47 | ED_ITS ---
HPI - General Adult General Chief complaint: Chest Pain Stated complaint: chest pain Time Seen by Provider: 05/10/23 23:52 Source: patient and target developer Mode of arrival: ambulatory Limitations: language barrier History of Present Illness HPI narrative: 28 yo male with history of anxiety/depression here with complaints of constant chest pressure for the last 2 days with no associated shortness of breath, cough, fever, dizziness, palpitations, diaphoresis. Pain is not worsened with activity. Pain is not worsened with deep breathing or movement. Patient reports he has history of anxiety and sometimes he does get chest pain with his anxiety but this feels different. He did speak to his therapist who recommended he be evaluated in the ER. Patient reports this weekend he did drink alcohol for several days, use cocaine. He does occasionally both drink and use cocaine. He also smokes cigarettes daily. He also has a history of gastritis and is waiting for an outpatient endoscopy on June 02. He denies any recent travel. Recent sick contact. No leg swelling or leg pain. Patient reports 3 years ago while he was in [facility] he was diagnosed with cardiomyopathy thought to be secondary to hypertension. He is supposed to be taking a cholesterol and blood pressure medication but he has been noncompliant with these. He is waiting to see a political advisor outpatient [place] in the [place] Related Data Previous Rx's Medication Instructions Recorded aluminum-mag hydroxide-simethicone 5 ml PO 5XD PRN dyspepsia #355 mL 05/28/22 200 mg-200 mg-20 mg/5 mL oral susp (Maalox Advanced) omeprazole 20 mg capsule,delayed 20 mg PO DAILY #30 caps 05/28/22 release bisoprolol fumarate 10 mg tablet 10 mg PO DAILY #30 tabs 06/05/22 acetaminophen 500 mg tablet 500 mg PO Q6H PRN fever or pain 09/20/22 (Tylenol Extra Strength) #14 tabs cyclobenzaprine 5 mg tablet 5 mg PO Q8H PRN pain (scale score 09/20/22 7-10) 5 days #14 tabs lidocaine 5 % topical patch 1 patch topical DAILY PRN pain #30 09/20/22 (Lidoderm) ea naproxen 500 mg tablet 500 mg PO BID PRN pain 10 days #20 09/20/22 tabs Allergies Allergy/AdvReac Type Severity Reaction Status Date / Time No Known Allergies Allergy Verified 05/10/23 19:44 Review of Systems 2 Review of Systems: Yes all other systems are reviewed and are negative Constitutional: Constitutional: Reports no additional constitutional complaints, Denies body ache(s), Denies chills, Denies fever(s), Denies headache(s) and Denies weakness Eyes: Eyes: Reports no additional eye complaints and Denies change in vision ENT: Reports system reviewed and no additional complaints, except as documented, Denies dizziness, Denies headache(s), Denies nasal congestion, Denies nasal discharge and Denies neck pain Cardiovascular: Cardiovascular: Reports no additional cardiovascular complaints, Reports chest pain, Denies leg edema and Denies dyspnea Respiratory: Respiratory: Reports no additional respiratory complaints, Denies cough and Denies dyspnea Gastrointestinal: Gastrointestinal: Reports no additional gastrointestinal complaints, Denies abdominal pain, Denies diarrhea, Denies nausea and Denies vomiting Genitourinary: Genitourinary: Denies urinary incontinence Musculoskeletal: Musculoskeletal: Reports no additional musculoskeletal complaints, Denies back pain, Denies arthralgias, Denies joint swelling, Denies neck pain, Denies numbness and Denies tingling Integumentary/Breasts: Skin/Breast: Reports system reviewed and no additional complaints, except as docu and Denies rash Neurologic: Reports system reviewed and no additional complaints, except as documented, Denies Abnormal speech present, Denies dizziness, Denies headache(s), Denies numbness, Denies tingling and Denies weakness PMFSH Past Medical History Attestation statement: The following information was validated with the patient. Source: old records reviewed and nursing notes reviewed Social History Social History Alcohol intake: current Smoked in Last 30 Days: Yes Substance Use Type: Crack/Cocaine Advance Directives: No Advance Directives Information Provided: Yes Physical Exam ED Vital Signs: Vital Signs - 24 hr 05/10/23 19:44 05/10/23 22:40 05/11/23 00:45 Temperature 98 F 97.7 F Pulse Rate 88 60 68 Respiratory Rate 20 18 18 Blood Pressure 149/103 H 142/87 H 148/102 H Pulse Oximetry 98 99 100 Oxygen Delivery Method Room Air Room Air Room Air BMI result Body Mass Index 28.7 Const General: cooperative, healthy appearing, comfortable and no acute distress Orientation/consciousness: patient oriented x3 Limitations: no limitations HENMT Head: Yes normal to inspection Ears: hearing grossly normal bilaterally General nose exam: Normal external nose present Face and sinus: Yes normal facial exam Mouth: Normal oral and palatal mucosa present Throat: Yes posterior oropharynx normal Eyes General: appearance normal, both eyes and all related structures Pupils: Equal, round and reactive pupils present Neck Neck: Yes normal visual inspection Chest Chest palpation & inspection: normal inspection of the chest Resp Effort & Inspection: normal respiratory effort Auscultation: clear to auscultation bilaterally Cardio Rate: regular rate Rhythm: regular rhythm Peripheral pulses: Peripheral pulses 2+ throughout GI Inspection: Yes normal to inspection Palpation (GI): Soft to palpation and nontender Auscultation: normal bowel sounds Back/Spine/Pelvis Thoracic/Lumbar Spine: thoracic and lumbar spine normal to inspection Skin General skin exam: no rashes or lesions noted Neuro General: patient oriented x3, no focal motor deficits and normal sensation to monofilament Cranial nerves: Yes Equal, round and reactive pupils present Cognition (Neuro): normal cognition Speech: No Abnormal speech present Gait exam (Neuro): Normal gait present Motor exam (neuro): 5/5 motor strength present throughout Extrem General: Yes normal to inspection, Yes no pedal edema and Yes no calf tenderness Course Course Course Narrative: RME: 28 yold male with pmh of anxiety presents to the ED for chest pain. patient admits to drinking alcohol and cocaine this past weekend until monday. EkG and labs ordered Reevaluation(s) Reevaluation #1: Labs are unremarkable. EKG nonischemic. Chest x-ray shows no acute finding. I reviewed this with the patient. He would likely benefit from follow up outpatient with Cardiology based on his history. I do not feel that he needs to be inpatient for this. I do recommend he follow-up with his outpatient providers and return for any worsening symptoms. Reviewed worrisome signs and symptoms of when to return to the emergency room. Comfortable plan for discharge home Medical Decision Making Medical Decision Making MDM Narrative: 28 yo male with history of anxiety/depression here with complaints of constant chest pressure for the last 2 days with no associated shortness of breath, cough, fever, dizziness, palpitations, diaphoresis. Pain is not worsened with activity. Pain is not worsened with deep breathing or movement. Patient reports he has history of anxiety and sometimes he does get chest pain with his anxiety but this feels different. He did speak to his therapist who recommended he be evaluated in the ER. Patient reports this weekend he did drink alcohol for several days, use cocaine. He does occasionally both drink and use cocaine. He also smokes cigarettes daily. He also has a history of gastritis and is waiting for an outpatient endoscopy on June 02. He denies any recent travel. Recent sick contact. No leg swelling or leg pain. Patient reports 3 years ago while he was in [facility] he was diagnosed with cardiomyopathy thought to be secondary to hypertension. He is supposed to be taking a cholesterol and blood pressure medication but he has been noncompliant with these. He is waiting to see a political advisor outpatient here in the [place] Exam is benign. No focal findings. Vitals stable. Will review chest x-ray, EKG and labs from triage Differential Diagnosis Differential Diagnoses: The differential diagnosis associated with the presentation includes Low concern for PE with perc 0 Low concern for ACS with atypical story, nonischemic EKG and negative troponin with symptoms for several days. Low concern for aortic dissection with gradual onset Admission/Observation Consideration of admission/observation: Escalation of care including admission/observation considered Low concern for ACS with atypical story, nonischemic EKG and negative troponin with symptoms for several days. No need for admission or Cardiology consultation Lab Data MDM Lab Attestation statement: I reviewed the patient's lab results. 05/10/23 20:03 05/10/23 20:03 Labs: Lab Results 05/10/23 Range/Units 20:03 WBC 7.1 (4.8-10.8) X10*3/uL RBC 4.86 (4.60-5.80) X10*6/uL Hgb 15.4 (14.0-18.0) g/dl Hct 42.9 (42.0-52.0) % MCV 88.3 (80.0-98.0) fL MCH 31.7 (27.0-33.0) pg MCHC 35.9 (31.0-36.0) g/dl RDW 11.8 (11.0-16.0) % Plt Count 163 (160-400) X10*3/uL MPV 11.4 (9.4-12.4) fL Immature Gran % (Auto) 0.4 (0.0-0.4) % Neut % (Auto) 54.6 (45-73) % Lymph % (Auto) 35.0 (20-40) % [place] % (Auto) 7.9 (2-11) % Eos % (Auto) 1.8 (0-4) % Baso % (Auto) 0.3 (0-2) % Lymph # (Auto) 2.5 (1.2-4.9) X10*3/uL [place] # (Auto) 0.6 (0.1-1.2) X10*3/uL Eos # (Auto) 0.1 (0.0-0.4) X10*3/uL Baso # (Auto) 0.0 (0.0-0.2) X10*3/uL Abs Immat Gran (auto) 0.03 (0.00-0.03) X10*3/uL Absolute Neuts (auto) 3.9 (2.0-8.3) x10*3/uL Absolute Nucleated RBC 0.000 (0.0-0.012) X10*3/uL Nucleated RBC % (auto) 0.0 (0.0-0.2) /100WBC PT 10.3 L (11.1-13.3) SEC INR 0.8 L (0.9-1.1) APTT 28.7 (26.0-36.4) SEC Sodium 137 (135-145) mmol/L Potassium 3.6 (3.3-5.1) mmol/L Chloride 104 (96-108) mmol/L Carbon Dioxide 23 (22-29) mmol/L Anion Gap 14 (12-20) BUN 18 H (9-16) mg/dL Creatinine 1.02 (0.5-1.4) mg/dL Estim Creat Clear Calc 120.0 Estimated GFR > 60 Random Glucose 105 (60-115) mg/dL Calcium 9.1 (8.4-10.2) mg/dL Total Bilirubin 1.6 H (0.0-1.0) mg/dL AST 36 (5-37) U/L ALT 43 H (0-40) U/L Alkaline Phosphatase 66 (39-117) U/L Troponin I High Sens < 2.7 (<3.5-35.0) ng/L B-Natriuretic Peptide < 10 (<100) pg/mL Total Protein 7.9 (6.5-8.0) g/dL Albumin 4.4 (3.5-5.0) g/dL Lipase 35 (8-78) U/L Independent Interpretation I performed an independent interpretation of an: EKG and Plain X-Ray Interpretation: I independently reviewed the chest x-ray and agree with Radiology report I independently reviewed the EKG which shows NSR with rate 73, normal pr, normal qrs Radiology Impression Discussion of test interpretation with radiology: I have reviewed the radiologist's reading. Radiologist Impression: [address] [address] XRay Report Signed Patient: Stephen Bynum MR#: [id number] : 1995 Acct:[id number] Age/Sex: 28 / M ADM Date: 05/10/23 Loc: HO.ED Attending Dr: Ordering Physician: Gabriel Marvin Date of Service: 05/10/23 Procedure(s): XR chest 1V Accession Number(s): [id number] cc: Gabriel Marvin; Physician,Unknown ~ EXAMINATION: XR CHEST CLINICAL INFORMATION: Chest pain COMPARISON: None available. TECHNIQUE: Frontal view of the chest was obtained. FINDINGS: No significant abnormality is noted involving the heart, lungs, mediastinum, bony thorax or soft tissues. XR/XR chest 1V IMPRESSION: Unremarkable chest examination. External Record Review External record reviewed: Prior outpatient labs and Prior outpatient radiology Patient does have his records from [facility] which are in Hebrew but we were able to use a equal opportunity director to review them. He did have echocardiogram which showed an EF of 60%. Normal Holter. He also had a discharge summary which reported cardiomyopathy secondary to hypertension. Discharge Plan Discharge Clinical Impression: Chest pain Patient Disposition: Home, Self-Care Instructions: Chest Pain (ED) Additional Instructions: Your blood work, EKG and x-ray are reassuring. Please follow-up with your primary care doctor for your cardiology referral Brenna an?lisis de fermín, electrocardiograma y radiograf?a son tranquilizadores. Malou un seguimiento con echavarria m?dico de atenci?n primaria para echavarria derivaci?n a cardiolog?a. Prescriptions: No Action omeprazole 20 mg capsule,delayed release(DR/EC) 20 mg PO DAILY Qty: 30 0RF alum-mag hydroxide-simeth [Maalox Advanced] 200-200-20 mg/5 mL suspension 5 ml PO 5XD PRN (Reason: dyspepsia) Qty: 355 0RF Rx Instructions: administer between meals and at bedtime acetaminophen [Tylenol Extra Strength] 500 mg tablet 500 mg PO Q6H PRN (Reason: fever or pain) Qty: 14 0RF lidocaine [Lidoderm] 5 % adhesive patch,medicated 1 patch topical DAILY MDD remove after 12 hours PRN (Reason: pain) Qty: 30 0RF Rx Instructions: leave on most painful area for up to 12 hrs naproxen 500 mg tablet 500 mg PO BID PRN (Reason: pain) 10 Days Qty: 20 0RF cyclobenzaprine 5 mg tablet 5 mg PO Q8H PRN (Reason: pain (scale score 7-10)) 5 Days Qty: 14 0RF bisoprolol fumarate 10 mg tablet 10 mg PO DAILY Qty: 30 0RF Referrals: [facility] [Primary Care Provider] - 1 week Stand Alone Forms: Work/School Release Interventions: ED Discharge Assessment Last Done: 05/11/23 01:39 Discharge Date/Time: 05/11/23 01:30 Print Language: Hebrew
[2023-05-10 20:12] LABS: MANUAL DIFF FLAG NO
[2023-05-10 20:14] LABS: Basophils Percent Auto 0.3 % (0-2); Eosinophils Absolute Auto 0.1 X10*3/uL (0.0-0.4); Eosinophils Percent Auto 1.8 % (0-4); Hematocrit 42.9 % (42.0-52.0); Hemoglobin 15.4 g/dl (14.0-18.0); Imm Gran Abs Auto 0.03 X10*3/uL (0.00-0.03); Imm Gran Pct Auto 0.4 % (0.0-0.4); Lymphocytes Absolute Auto 2.5 X10*3/uL (1.2-4.9); Mean Corpuscular HGB Conc 35.9 g/dl (31.0-36.0); Mean Corpuscular Hemoglobin 31.7 pg (27.0-33.0); Mean Corpuscular Volume 88.3 fL (80.0-98.0); Mean Platelet Volume 11.4 fL (9.4-12.4); Monocytes Absolute Auto 0.6 X10*3/uL (0.1-1.2); Monocytes Percent Auto 7.9 % (2-11); Neutrophils Absolute Auto 3.9 x10*3/uL (2.0-8.3); Neutrophils Percent Auto 54.6 % (45-73); Platelet Count 163 X10*3/uL (160-400); Red Blood Count 4.86 X10*6/uL (4.60-5.80); Red Cell Distribution Width 11.8 % (11.0-16.0); White Blood Count 7.1 X10*3/uL (4.8-10.8)
[2023-05-10 20:23] LABS: INTERNATIONAL NORM RATIO 0.8 (0.9-1.1); Prothrombin Time 10.3 SEC (11.1-13.3)
[2023-05-10 20:25] LABS: Partial Thromboplastin Time 28.7 SEC (26.0-36.4)
[2023-05-10 20:29] LABS: Alanine Aminotransferase 43 U/L (0-40); Albumin Level 4.4 g/dL (3.5-5.0); Alkaline Phosphatase 66 U/L (39-117); Anion Gap 14 (12-20); Aspartate Amino Transferase 36 U/L (5-37); Bilirubin Total 1.6 mg/dL (0.0-1.0); Blood Urea Nitrogen 18 mg/dL (9-16); Calcium 9.1 mg/dL (8.4-10.2); Carbon Dioxide 23 mmol/L (22-29); Chloride 104 mmol/L (96-108); Estimated Glomerular Filt Rate > 60; Glucose Random 105 mg/dL (60-115); Lipase 35 U/L (8-78); Potassium 3.6 mmol/L (3.3-5.1); Sodium 137 mmol/L (135-145); Total Protein 7.9 g/dL (6.5-8.0)
[2023-05-10 20:35] LABS: B Type Natriuretic Peptide < 10 pg/mL (<100)
[2023-05-10 20:39] LABS: Troponin-I High Sensitivity < 2.7 ng/L (<3.5-35.0)
[2023-05-10 22:40] VITALS: BP 142/87; PULSE 60; RESP 18; O2SAT 99
--- OUTSIDE RECORDS SUMMARY | 2023-05-10 23:45 | XMS_ITS | Continuity of Care Document ---
Author Name Unknown Organization [facility] Address [address] [place] [address]- Care Team Providers Care Superintendent Container Terminal Name Role Phone Not on Staff, PCP Primary Care Physician Unavail able Encounter [facility] Date(s): 04/08/22 - 04/15/[address] [address]- Attending Physician: David Rene MD Admitting Physician: David Rene MD Referring Physician: David Rnee MD Allergies, Adverse Reactions, Alerts No Known Allergies Medications Ativan 1 mg oral tablet 1 tablet = 1 mg, By Mouth, 2 times a day, PRN as needed for anxiety, As needed, # 10 tablet, 0 Refills, Maintenance, 03/07/22 16:44:00 EDT, Tablet, [facility] 3, Partial fill upon patientrequest if the prescription is for a schedule II op... Start Date: 03/07/22 Status: Ordered bisoprolol 10 mg oral tablet 1 tablet = 10 mg, By Mouth, Daily, Please label in Tamazight, # 30 tablet, 3 Refills, Maintenance, 03/23/22 16:10:00 EDT, Tablet, [facility] Partial fill upon patient request if the prescription is for a schedule II opioid drug. Start Date: 03/23/22 Status: Ordered FLUoxetine 20 mg oral capsule 20 mg, 1, capsule, By Mouth, Daily, # 30 capsule, Refills 0, Tot. Refills 0, Maintenance, 03/07/22 16:44:00 EDT, Route to Pharmacy Electronically, [facility] 3, Partial fill upon patient request if the prescription is for a schedule II opi... Start Date: 03/07/22 Status: Ordered Patient Care team information Personnel Name: Not on Staff, PCP
--- OUTSIDE RECORDS SUMMARY | 2023-05-10 23:45 | XMS_ITS | Continuity of Care Document ---
Author Name Unknown Organization [facility] ter Address [address] [place] [address]- Care Team Providers Care Restaurant Assistant Name Role Phone Not on Staff, PCP Primary Care Physician Unavail able Encounter [facility] Date(s): 03/07/22 - 03/07/[address] [address]- Encounter Diagnosis Medication refill(Final) - 03/07/22 Discharge Disposition: A-D/C Home Attending Physician: Ernie Singh MD Admitting Physician: Ernie Singh MD Referring Physician: Not on Staff, Referring MD Allergies, Adverse Reactions, Alerts No Known Allergies Medications Ativan 1 mg oral tablet 1 tablet = 1 mg, By Mouth, 2 times a day, PRN as needed for anxiety, As needed, # 10 tablet, 0 Refills, Maintenance, 03/07/22 16:44:00 EDT, Tablet, [id number], Partial fill upon patientrequest if the prescription is for a schedule II op... Start Date: 03/07/22 Status: Ordered FLUoxetine 20 mg oral capsule 20 mg, 1, capsule, By Mouth, Daily, # 30 capsule, Refills 0, Tot. Refills 0, Maintenance, 03/07/22 16:44:00 EDT, Route to Pharmacy Electronically, [id number], Partial fill upon patient request if the prescription is for a schedule II opi... Start Date: 03/07/22 Status: Ordered Vital Signs Most recent to oldest [Reference Range]: 1 2 3 Oxygen Saturation [94-100 %] 100 % (03/07/22 4:07 PM) 99 % (03/07/22 1:19 PM) 100 % (03/07/22 1:10 PM) Pulse Rate [55-90 bpm] 48 bpm *L* (03/07/22 4:07 PM) 56 bpm (03/07/22 1:19 PM) 97 bpm *H* (03/07/22 1:10 PM) Blood Pressure [90-138/55-84 mm Hg] 123/80mm Hg (03/07/22 4:07 PM) 134/77mm Hg (03/07/22 1:19 PM) Respiratory Rate [16-30 br/min] 20 br/min (03/07/22 4:07 PM) 16 br/min (03/07/22 1:19 PM) 18 br/min (03/07/22 1:10 PM) Temperature [96.8-100.4 DegF] 98.8 DegF (03/07/22 1:19 PM) Mode of Delivery (Oxygen) Room air (03/07/22 4:07 PM) Room air (03/07/22 1:19 PM) Room air (03/07/22 1:10 PM) Blood pressure sites Arm, left (03/07/22 4:07 PM) Arm, left (03/07/22 1:19 PM) Temperature Route Oral (03/07/22 1:19 PM)
--- OUTSIDE RECORDS SUMMARY | 2023-05-10 23:45 | XMS_ITS | Continuity of Care Document ---
Author Name Unknown Organization [facility] Address [address] [place] [address]- Care Team Providers Care Research Nurse Name Role Phone Not on Staff, PCP Primary Care Physician Unavail able Encounter [facility] Date(s): 06/06/22 - 07/06/22 [facility] [address] [place], [place] [address] Allergies, Adverse Reactions, Alerts No Known Allergies Medications Ativan 1 mg oral tablet 1 tablet = 1 mg, By Mouth, 2 times a day, PRN as needed for anxiety, As needed, # 10 tablet, 0 Refills, Maintenance, 03/07/22 16:44:00 EDT, Tablet, [facility] 3, Partial fill upon patientrequest if the prescription is for a schedule II op... Start Date: 03/07/22 Status: Ordered bisoprolol 10 mg oral tablet 1 tablet = 10 mg, By Mouth, Daily, Please label in Fijian, # 30 tablet, 3 Refills, Maintenance, 03/23/22 16:10:00 EDT, Tablet, [facility]., Partial fill upon patient request if the prescription is for a schedule II opioid drug. Start Date: 03/23/22 Status: Ordered FLUoxetine 20 mg oral capsule 20 mg, 1, capsule, By Mouth, Daily, # 30 capsule, Refills 0, Tot. Refills 0, Maintenance, 03/07/22 16:44:00 EDT, Route to Pharmacy Electronically, [facility] 3, Partial fill upon patient request if the prescription is for a schedule II opi... Start Date: 03/07/22 Status: Ordered Patient Care team information Care Team Personnel Name: Not on Staff, PCP Position: [facility] Physician (General Medicine) Member Role: PCP
--- OUTSIDE RECORDS SUMMARY | 2023-05-10 23:45 | XMS_ITS | Continuity of Care Document ---
Author Name Unknown Organization [facility] ter Address [address] [place] [address]- Care Team Providers Care Construction Framer Name Role Phone Not on Staff, PCP Primary Care Physician Unavail able [place] [facility] [place] - 06/11/[address] [address]- Attending Physician: Jeffrey Reid MD Admitting Physician: Jeffrey Reid MD Referring Physician: Sylvia Banda MD Allergies, Adverse Reactions, Alerts No Known Allergies Medications Ativan 1 mg oral tablet 1 tablet = 1 mg, By Mouth, 2 times a day, PRN as needed for anxiety, As needed, # 10 tablet, 0 Refills, Maintenance, 03/07/22 16:44:00 EDT, Tablet, [facility] 3, Partial fill upon patientrequest if the prescription is for a schedule II op... Start Date: 03/07/22 Status: Ordered bisoprolol 10 mg oral tablet 1 tablet = 10 mg, By Mouth, Daily, Please label in Dutch, # 30 tablet, 3 Refills, Maintenance, 03/23/22 16:10:00 EDT, [facility] fill upon patient request if the prescription is for a schedule II opioid drug. Start Date: 03/23/22 Status: Ordered FLUoxetine 20 mg oral capsule 20 mg, 1, capsule, By Mouth, Daily, # 30 capsule, Refills 0, Tot. Refills 0, Maintenance, 03/07/22 16:44:00 EDT, Route to Pharmacy Electronically, [facility] 3, Partial fill upon patient request if the prescription is for a schedule II opi... Start Date: 03/07/22 Status: Ordered Patient Care team information Care Team Personnel Name: Not on Staff, PCP Position: S Physician (General Medicine) Member Role: PCP
--- OUTSIDE RECORDS SUMMARY | 2023-05-10 23:45 | XMS_ITS | Continuity of Care Document ---
Author Name Unknown Organization [facility] Address [address] [address]- Care Team Providers Care Manager Occupational Name Role Phone Not on Staff, PCP Primary Care Physician Unavail able [place] [facility] [place] - 05/08/[address] [address]- Attending Physician: Julissa Ferguosn Admitting Physician: Julissa Ferguson Referring Physician: AdmJulissa jain Allergies, Adverse Reactions, Alerts No Known Allergies Medications Ativan 1 mg oral tablet 1 tablet = 1 mg, By Mouth, 2 times a day, PRN as needed for anxiety, As needed, # 10 tablet, 0 Refills, Maintenance, 03/07/22 16:44:00 EDT, Tablet, [facility] 3, Partial fill upon patientrequest if the prescription is for a schedule II op... Start Date: 03/07/22 Status: Ordered bisoprolol 10 mg oral tablet 1 tablet = 10 mg, By Mouth, Daily, Please label in British, # 30 tablet, 3 Refills, Maintenance, 03/23/22 16:10:00 EDT, Tablet, [facility]., Partial fill upon patient request if the prescription is for a schedule II opioid drug. Start Date: 03/23/22 Status: Ordered FLUoxetine 20 mg oral capsule 20 mg, 1, capsule, By Mouth, Daily, # 30 capsule, Refills 0, Tot. Refills 0, Maintenance, 03/07/22 16:44:00 EDT, Route to Pharmacy Electronically, [facility] 3, Partial fill upon patient request if the prescription is for a schedule II opi... Start Date: 03/07/22 Status: Ordered Patient Care team information Personnel Name: Not on Staff, PCP
--- OUTSIDE RECORDS SUMMARY | 2023-05-10 23:45 | XMS_ITS | Continuity of Care Document ---
Author Name Unknown Organization [facility] Address [address] [place] [address]- Care Team Providers Care Anode Builder Name Role Phone Not on Staff, PCP Primary Care Physician Unavail able [id number] Date(s): 03/16/23 - 04/15/23 [facility] [address] [place] [address] Allergies, Adverse Reactions, Alerts No Known Allergies Medications Ativan 1 mg oral tablet 1 tablet = 1 mg, By Mouth, 2 times a day, PRN as needed for anxiety, As needed, # 10 tablet, 0 Refills, Maintenance, 03/07/22 16:44:00 EDT, Tablet, [facility] 3, Partial fill upon patientrequest if the prescription is for a schedule II op... Start Date: 03/07/22 Status: Ordered bisoprolol 10 mg oral tablet 1 tablet = 10 mg, By Mouth, Daily, Please label in Macanese, # 30 tablet, 3 Refills, Maintenance, 03/23/22 16:10:00 EDT, [facility] Partial fill upon patient request if the prescription is for a schedule II opioid drug. Start Date: 03/23/22 Status: Ordered FLUoxetine 20 mg oral capsule 20 mg, 1, capsule, By Mouth, Daily, # 30 capsule, Refills 0, Tot. Refills 0, Maintenance, 03/07/22 16:44:00 EDT, Route to Pharmacy Electronically, [facility] 3, Partial fill upon patient request if the prescription is for a schedule II opi... Start Date: 03/07/22 Status: Ordered Patient Care team information Care Team Personnel Name: Not on Staff, PCP Position: S Physician (General Medicine) Member Role: PCP Care Team Related Persons Name: YASHIRA TURCIOS
--- OUTSIDE RECORDS SUMMARY | 2023-05-10 23:45 | XMS_ITS | Continuity of Care Document ---
Author Name Unknown Organization [facility] Address [address] [place] [address]- Care Team Providers Care Sequins Slinger Name Role Phone Not on Staff, PCP Primary Care Physician Unavail able Encounter [facility] [place] [place] Date(s): 05/10/22 - 06/09/22 [facility] [address], [place] [address] Allergies, Adverse Reactions, Alerts No Known Allergies Medications Ativan 1 mg oral tablet 1 tablet = 1 mg, By Mouth, 2 times a day, PRN as needed for anxiety, As needed, # 10 tablet, 0 Refills, Maintenance, 03/07/22 16:44:00 EDT, Tablet, [facility], Partial fill upon patientrequest if the prescription is for a schedule II op... Start Date: 03/07/22 Status: Ordered bisoprolol 10 mg oral tablet 1 tablet = 10 mg, By Mouth, Daily, Please label in [place], # 30 tablet, 3 Refills, Maintenance, 03/23/22 16:10:00 EDT, Tablet, [facility] Partial fill upon patient request if the prescription is for a schedule II opioid drug. Start Date: 03/23/22 Status: Ordered FLUoxetine 20 mg oral capsule 20 mg, 1, capsule, By Mouth, Daily, # 30 capsule, Refills 0, Tot. Refills 0, Maintenance, 03/07/22 16:44:00 EDT, Route to Pharmacy Electronically, [facility], Partial fill upon patient request if the prescription is for a schedule II opi... Start Date: 03/07/22 Status: Ordered Patient Care team information Care Team Personnel Name: Not on Staff, PCP Position: [facility] Physician (General Medicine) Member Role: PCP
[2023-05-11 00:45] VITALS: BP 148/102; PULSE 68; RESP 18; TEMP 36.5; O2SAT 100
[2023-05-11 01:38] VITALS: PULSE 78
== END 2023-05-11 01:30 | disposition home or self-care (01) ==
PROVIDERS: Physician Assistant; Emergency Provider Internal Medicine
DX: R07.9 Chest pain, unspecified (principal); F17.210 Nicotine dependence, cigarettes, uncomplicated
CPT/HCPCS: 36415; 71045; 80053; 83690; 83880; 84484; 85025; 85610; 85730; 93005; 99283; 99285

== ENCOUNTER 2023-12-18 16:01 | Outpatient (REF) | payer SELFPAY ==
[2023-12-18 18:37] LABS: Alanine Aminotransferase 54 U/L (0-40); Albumin Level 4.6 g/dL (3.5-5.0); Alkaline Phosphatase 60 U/L (39-117); Anion Gap 15 (12-20); Aspartate Amino Transferase 32 U/L (5-37); Bilirubin Total 1.4 mg/dL (0.0-1.0); Blood Urea Nitrogen 12 mg/dL (9-16); Calcium 9.7 mg/dL (8.4-10.2); Carbon Dioxide 25 mmol/L (22-29); Chloride 106 mmol/L (96-108); Cholesterol 194 mg/dL (<200); Estimated Glomerular Filt Rate > 60; Glucose Random 63 mg/dL (60-115); HDL Cholesterol 30 mg/dL (>40); Potassium 3.8 mmol/L (3.3-5.1); Sodium 142 mmol/L (135-145); Total Protein 8.4 g/dL (6.5-8.0); Triglycerides 773 mg/dL (<150)
[2023-12-19 05:17] LABS: Estimated Average Glucose 80 mg/dL; Hemoglobin A1c % 4.4 % (<6.0)
== END 2023-12-18 16:02 | disposition home or self-care (01) ==
LOC: HO.HHCL 16:01
PROVIDERS: Visit Provider General Practice
DX: E66.3 Overweight (principal)
CPT/HCPCS: 36415; 80053; 80061; 83036

== ENCOUNTER 2024-08-30 09:52 | Outpatient (REF) | payer MEDICAID, SELFPAY ==
--- OUTSIDE RECORDS SUMMARY | 2024-08-30 10:25 | XMS_ITS | Encounter Summary ---
Author Organization [employer] Address [address] [place] [address] Care Team Providers Care Laborer Stores Name Role Phone Soraya Andrade MD Primary Care Provider [phone] Reason for Referral * Imaging (Routine) - Authorized Specialty Diagnoses / Procedures Referred By Contac t Referred To Contact Radiology Diagnoses Alcohol use disorder Procedures US Abdomen Complete Soraya Andrade MD [address] [place] [address] Phone: tel: fax: [facility] [address], [place] Phone: tel: fax: Referral ID Status Reason Start Date Expiration Date V isits Requested Visits Authorized [id number] Authorized 08/30/2024 08/30/2025 1 1 Reason for Visit * Reason Comments Annual Exam Encounter Details Date Type Department Care Team (Late st Contact Info) Description 08/30/2024 9:00 AM EST Office Visit [facility] [address] [place], [place] [phone] Soraya Andrade MD [address], [place] [phone] Alcohol use disorder (Primary Dx); Gastroesophageal reflux disease without esophagitis; Non-specific low back pain; Dietary counseling; Exercise counseling; Overweight; Encounter for immunization Social History Tobacco Use Types Packs/Day Years Used Date Smoking Tobacco: Some Days Cigarettes Smokeless Tobacco: Never Tobacco Cessation:Ready to Q uit: Not Asked; Counseling Given: Not Answered Alcohol Use Standard Drinks/Week Comments Yes 0 (1 standard drink = 0.6 oz pur e alcohol) socially Depression Answer Date Recorded Patient Health Questionnaire-9 Score 5 08/30/2024 Patient Health Questionnaire-9 Score 5 08/30/2024 Last PHQ-9: Questionnaire Data Not on file 0 08/30/2024 Housing Stability Answer Date Recorded What is your housing situation today? I have yamileth lainez 07/18/[address] you li ve. Do you have problems with any of the following? Inadequate heat 07/18/2024 Food Insecurity Answer Date Recorded Within the past 12 months, y ou worried that your food would run out before you got money to buy more: Never True 07/18/2024 Within the past 12 months,th e food you bought just didn't last and you didn't have enough money to get more: Never True 08/2024 Transportation Answer Date Recorded In the past 12 months, has l ack of transportation kept you from medical appts, meetings, work or from getting things needed for daily living? No 07/18/2024 Utilities Answer Date Recorded In the past 12 months, has t he electric, gas, oil or water company threatened to shut off services in your home? No 07/18/2024 Depression Answer Date Recorded Patient Health Questionnaire-2 Score 2 08/30/2024 Internet Access Answer Date Recorded Internet Access Q1 Yes 07/18/2024 Internet Access Q2 Not on file 07/18/2024 Sex and Gender Information Value Date Recorded Sex Assigned at Male 02/07/2023 4:03 PM EDT Legal Sex Male 3:51 PM EDT Gender Identity Male 02/07/2023 4:03 PM EDT Sexual Orientation Straight 02/07/2023 4: 12 PM EDT documented as of this encounter Last Filed Vital Signs Vital Sign Reading Time Taken Comments Blood Pressure 135/84 08/30/2024 9:06 AM EST Pulse 68 08/30/2024 9:06 AM EST Temperature 36.6 ??C (97.8 ??F) 08/30/2024 9:06 AM ES T Respiratory Rate 17 08/30/2024 9:06 AM EST Oxygen Saturation 98% 08/30/2024 9:06 AM EST Inhaled Oxygen Concentration - - Weight 88.9 kg (196 lb) 08/30/2024 9:06 AM EST Height 170.2 cm (5' 7 ) 08/30/2024 9:06 AM EST Body Mass Index 30.7 08/30/2024 9:06 AM EST documented in this encounter Plan of Treatment Upcoming Encounters Date Type Department Care Team (Late st Contact Info) Description 09/13/2024 8:00 AM EST Office Visit [facility] [address], [place] [phone] Simón Arzate, DMD [address] [place] [address] Scheduled Orders Name Type Priority Associated Diagnoses Orde r Schedule HIV-1/2 Antigen and Antibodies, Fourth Generation, with Reflexes Lab Routine Alcohol use disorder Expected: 08/30/2024 (Approximate), Expires: 08/30/2025 Hepatitis C Antibody with Reflex to HCV, RNA, Quantitative, Real-Time PCR Lab Routine Alcohol use disorder Expected: 08/30/2024, Expires: 08/30/2025 Comprehensive Metabolic Panel Lab Routine Overweight Expected: 08/30/2024 (Approximate), Expires: 08/30/2025 Lipid Panel, Standard Lab Routine Overweight Expected: 08/30/2024 (Approximate), Expires: 08/30/2025 CBC auto differential Lab Routine Alcohol use disorder Expected: 08/30/2024 (Approximate), Expires: 08/30/2025 US Abdomen Complete Imaging Routine Alcohol use disorder Expected: 08/30/2024, Expires: 08/30/2025 documented as of this encounter Visit Diagnoses Diagnosis Alcohol use disorder- Primary Gastroesophageal reflux disease without esophagitis Esophageal reflux Non-specific low back pain Dietary counseling Dietary surveillance and counseling Exercise counseling Overweight Encounter for immunization documented in this encounter Additional Health Concerns Assessment Noted Time PHQ-9 Depression Total Score: 5 08/30/19 25 9:08 AM EST documented as of this encounter Care Teams Laborer Stores Relationship Specialty Start Date End Date Soraya Andrade MD [address] [place] [address] PCP - General Family Medicine 03/08/23 documented as of this encounter
--- OUTSIDE RECORDS SUMMARY | 2024-08-30 10:25 | XMS_ITS | Encounter Summary ---
Author Organization [employer] Address [address] [place] [address] Care Team Providers Care Booster Pump Operator Name Role Phone Soraya Andrade MD Primary Care Provider [phone] Encounter Details Date Type Department Care Team ([facility] st Contact Info) Description 12/18/2023 Orders Only [facility] [address] [place], [place] [phone] Soraya Andrade MD [address] [place] [address] Social History Tobacco Use Types Packs/Day Years Used Date Smoking Tobacco: Never Smokeless Tobacco: Never Alcohol Use Standard Drinks/Week Comments Never 0 (1 standard drink = 0.6 oz pur e alcohol) Depression Answer Date Recorded Patient Health Questionnaire-9 Score 14 03/10/2023 Housing Stability Answer Date Recorded What is your housing situation today? I have yamilethabby lainez 05/11/[address] you li ve. Do you have problems with any of the following? None of the above 05/11/2023 Food Insecurity Answer Date Recorded Within the past 12 months, y ou worried that your food would run out before you got money to buy more: Never True 05/11/2023 Within the past 12 months,th e food you bought just didn't last and you didn't have enough money to get more: Never True Transportation Answer Date Recorded In the past 12 months, has l ack of transportation kept you from medical appts, meetings, work or from getting things needed for daily living? Yes, it has kept me from medical appointments or getting medications. 04/24/2023 Utilities Answer Date Recorded In the past 12 months, has t he electric, gas, oil or water company threatened to shut off services in your home? No 05/11/2023 Depression Answer Date Recorded Patient Health Questionnaire-2 Score 4 03/10/2023 Sex and Gender Information Value Date Recorded Sex Assigned at Male 02/07/2023 4:03 PM EDT Legal Sex Male 3:51 PM EDT Gender Identity Male 02/07/2023 4:03 PM EDT Sexual Orientation Straight 02/07/2023 4: 12 PM EDT documented as of this encounter Plan of Treatment Upcoming Encounters Date Type Department Care Team (Late st Contact Info) Description 09/13/2024 8:00 AM EST Office Visit [facility] [address] [place] [address] Simón Arzate, GUERO [address] [place] [address] documented as of this encounter Visit Diagnoses Not on filedocumented in this encounter Additional Health Concerns Assessment Noted Time PHQ-9 Depression Total Score: 14 023 11:58 AM EDT documented as of this encounter Care Teams Booster Pump Operator Relationship Specialty Start Date End Date Soraya Andrade MD [address] [place] [address] PCP - General Family Medicine 03/08/23 documented as of this encounter
--- OUTSIDE RECORDS SUMMARY | 2024-08-30 10:25 | XMS_ITS | Encounter Summary ---
Author Organization [employer] Address [address] [place] [address] Care Team Providers Care Chemistry Technician Name Role Phone Soraya Andrade MD Primary Care Provider Reason for Visit * Reason Comments Pre-visit Planning (Unable to reach for PVP screening, LVM) Encounter Details Date Type Department Care Team ([facility] st Contact Info) Description 08/19/2024 Patient Outreach [facility] [address] [place], [place] [phone] Soraya Andrade MD [address] [place] [address] Pre-visit Planning ((Unable to reach for PVP screening, LVM)) Social History Tobacco Use Types Packs/Day Years [...] Recorded Patient Health Questionnaire-2 Score 4 03/10/2023 Internet Access Answer Date Recorded Internet Access Q1 Yes 07/18/2024 Internet Access Q2 Not on file 07/18/2024 Sex and Gender Information Value Date Recorded Sex Assigned at Male 02/07/2023 4:03 PM EDT Legal Sex Male 3:51 PM EDT Gender Identity Male 02/07/2023 4:03 PM EDT Sexual Orientation Straight 02/07/2023 4: 12 PM EDT documented as of this encounter Progress Notes * Izabella Caal - 08/19/2024 8:36 AM EST CC Izabella placed outbound call to patient to complete pre-visit planning. No answer at this time. Patient name and were not confirmed. CC left voicemail requesting return call. Direct contact information provided. documented in this encounter Plan of Treatment Upcoming Encounters Date Type Department Care Team (Late st Contact Info) Description 09/13/2024 8:00 AM EST Office Visit [facility] [address] [place] [address] Simón Arzate, DMD [address] [place] [address] documented as of this encounter Visit Diagnoses Not on filedocumented in this encounter Additional Health Concerns Assessment Noted Time PHQ-9 Depression Total Score: 14 023 11:58 AM EDT documented as of this encounter Care Teams Chemistry Technician Relationship Specialty Start Date End Date Soraya Andrade MD [address] [place] [address] PCP - General Family Medicine 03/08/23 documented as of this encounter
--- OUTSIDE RECORDS SUMMARY | 2024-08-30 10:25 | XMS_ITS | Encounter Summary ---
Author Organization [employer] Address [address] [place] [address] Care Team Providers Care Stone Lathe Operator Name Role Phone Soraya Andrade MD Primary Care Provider [phone] Reason for Visit * Reason Comments Med Refill Encounter Details Date Type Department Care Team ([facility] st Contact Info) Description 10/09/2023 Refill [facility] [address] [place], [place] [phone] Soraya Andrade MD [address] [place], [place] [phone] Social History Tobacco Use Types Packs/Day Years Used Date Smoking Tobacco: Never Smokeless Tobacco: Never Alcohol Use Standard Drinks/Week Comments Never 0 (1 standard drink = 0.6 oz pur e alcohol) Depression Answer Date Recorded Patient Health Questionnaire-9 Score 14 03/10/2023 Housing Stability Answer Date Recorded What is your housing situation today? I have yamileth lainez 05/11/[address] you [...] Description 09/13/2024 8:00 AM EST Office Visit [facility] [address] [place] [address] Simón Arzate, GUERO [address] [place] [address] documented as of this encounter Visit Diagnoses Not on filedocumented in this encounter Additional Health Concerns Assessment Noted Time PHQ-9 Depression Total Score: 14 023 11:58 AM EDT documented as of this encounter Care Teams Stone Lathe Operator Relationship Specialty Start Date End Date Soraya Andrade MD [address] [place] [address] PCP - General Family Medicine 03/08/23 documented as of this encounter
--- OUTSIDE RECORDS SUMMARY | 2024-08-30 10:25 | XMS_ITS | Encounter Summary ---
Author Organization [employer] Address [address] [place] [address] Care Team Providers Care Imaging Scheduler Name Role Phone Soraya Andrade MD Primary Care Provider [phone] Encounter Details Date Type Department Care Team (Latest Contact Info) Description 08/30/2024 Travel Social History Tobacco Use Types Packs/Day Years Used Date Smoking Tobacco: Some Days Cigarettes Smokeless Tobacco: Never Alcohol Use Standard Drinks/Week Comments Yes 0 [...] Description 09/13/2024 8:00 AM EST Office Visit [facility] [address] [place] [address] Simón Arzate DMD [address] [place] [address] documented as of this encounter Visit Diagnoses Not on filedocumented in this encounter Additional Health Concerns Assessment Noted Time PHQ-9 Depression Total Score: 5 08/30/19 25 9:08 AM EST documented as of this encounter Care Teams Imaging Scheduler Relationship Specialty Start Date End Date Soraya Andrade MD [address] [place] [address] PCP - General Family Medicine 03/08/23 documented as of this encounter
--- OUTSIDE RECORDS SUMMARY | 2024-08-30 10:25 | XMS_ITS | Clinical Summary ---
Author Organization [employer] Address [address] [facility] 7[address] [place] [address] Care Team Providers Care Tmr Teacher Name Role Phone Soraya Andrade MD Primary Care Provider [phone] Allergies No known active allergies Medications * This document contains information received from the source organization and may not represent a complete record from that organization. lidocaine (Lidoderm) 5 % patch PLEASE SEE ATTACHED FOR DETAILED DIRECTIONS 09/21/19 23 Active Menthol-Methyl Salicylate (Muscle Rub) 10-15 % cream Apply 1 Application topically if needed in the morning and at bedtime (pain). 85 g 12/18/19 24 Active methocarbamol (Robaxin) 750 MG tabletIndicati ons:Non-specif ic low back pain Take 1 tablet (750 mg) by mouth 4 times daily for 10 days. 40 tablet 03/04/20 24 Active atorvastatin (Lipitor) 40 MG tablet TAKE 1 TABLET BY MOUTH EVERY DAY 90 tablet 3 06/21/20 24 Active escitalopram (Lexapro) 5 MG tablet Take 1 tablet (5 mg) by mouth Once per day. 90 tablet 3 08/30/19 25 Active omeprazole (PriLOSEC) [address] capsuleIndicat ions:Gastroeso phageal reflux disease without esophagitis Take 1 capsule (20 mg) by mouth Once per day. 90 capsule 3 08/30/19 25 Active Acetaminophen Extra Strength 500 MG tablet Take 1 tablet (500 mg) by mouth every 6 (six) hours if needed (pain). 60 tablet 11 08/30/19 25 Active meloxicam (Mobic) 15 MG tabletIndicati ons:Non-specif ic low back pain TAKE 1 TABLET BY MOUTH EVERY DAY 90 tablet 3 08/30/19 25 Active Acetaminophen Extra Strength 500 MG tablet Take 1 tablet by mouth every 6 (six) hours if needed. 09/21/19 025 Discontinued(R eorder (will not trigger notification to Pharmacy)) Antacid/Antiga s 400-400-40 MG/10ML oral suspension TAKE 5 MLS BY MOUTH 5X A DAY NEEDED FOR DYSPEPSIA ADMINISTER BETWEEN MEALS AND AT BEDTIME 05/29/20 025 Discontinued(T herapy completed) bisoprolol (Zebeta) 10 MG tabletIndicati ons:Palpitatio n Take 1 tablet (10 mg) by mouth in the morning. 90 tablet 3 03/08/20 025 Discontinued(T herapy completed) FLUoxetine (PROzac) 20 MG capsuleIndicat ions:Anxiety Take 1 capsule (20 mg) by mouth in the morning. 90 capsule 3 03/08/20 025 Discontinued(S robb effects) famotidine (Pepcid) 20 MG tablet 04/18/20 025 Discontinued(T herapy completed) clonazePAM (KlonoPIN) 0.5 MG tablet Take 0.5 mg by mouth if needed in the morning, at noon, and at bedtime for anxiety. 10/24/19 025 Discontinued(T herapy completed) escitalopram (Lexapro) 5 MG tablet Take 5 mg by mouth Once per day. 10/24/19 025 Discontinued(R eorder (will not trigger notification to Pharmacy)) meloxicam (Mobic) 15 MG tabletIndicati ons:Non-specif ic low back pain TAKE 1 TABLET BY MOUTH EVERY DAY 30 tablet 3 04/01/20 025 Discontinued(R eorder (will not trigger notification to Pharmacy)) omeprazole (PriLOSEC) [address] capsuleIndicat ions:Gastroeso phageal reflux disease without esophagitis TAKE 1 CAPSULE (20 MG) BY MOUTH IN THE MORNING 90 capsule 3 04/12/20 025 Discontinued(R eorder (will not trigger notification to Pharmacy)) Active Problems Problem Noted Date Diagnosed Date Overweight 12/20/2023 Assessment & Plan (12/20/2023 4:20 PM EDT): Labs checked today and TG very high Re-iterated idea to decrease sugary beverages Chronic gastric ulcer withou t 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 Factors contributing to his symptoms are as follows; Hx of trauma in childhood, [place] year and two months ago, financial struggle, new heart condition diagnosis and alcohol use . Patient will benefit from Individual therapy with CBT approach, to identify negative thoughts patterns and use cognitive restructuring techniques. At this time Stephen Brar meets criteria for Visit Diagnoses: Problem List Items Addressed This Visit Other Severe anxiety with panic Alcohol use disorder Patient ready to address current needs Yes Strengths include willing to seek help. PLAN: 1. Follow up with [facility]: Not recommended for follow-up 2. Patient goal is to improve mental health to manage symptoms 3. Behavioral Recommendations a. Ind. Therapy, referral will be submitted b. Use of coping skills provided as recommended. c. [facility] contact number for support. Alcohol use disorder 03/10/2023 Assessment & Plan (12/20/2023 4:20 PM EDT): Recommended decreasing sugary drinks to 1-2 daily as this can affect his mood and weight Encounters Date Type Department Care Team Description 08/30/2024 9:00 AM EST Office Visit [facility] [address] [place] [phone] Soraya Andrade MD Alcohol use disorder (Primary Dx); Gastroesophageal reflux disease without esophagitis; Non-specific low back pain; Dietary counseling; Exercise counseling; Overweight; Encounter for immunization 08/30/2024 Travel 08/19/2024 Patient Outreach [facility] [address] [place] [phone] Soraya Andrade MD Pre-visit Planning ((Unable to reach for PVP screening, LVM)) 07/26/[address] [phone] Soraya Andrade MD Nurse Triage 07/19/2024 Patient Outreach [address] [phone] Soraya Andrade MD Care Coordination ([address] Connie Flowers telephone call outreach) 07/18/2024 Patient Outreach [address] [phone] Soraya Andrade MD Pre-visit Planning (SDOH screening positive and tobacco screening positive) 06/21/[address] [phone] Soraya Andrade MD from Last 3 Months Immunizations Name Administration Dates Next Due Influenza, seasonal, injectable, preservative fr ee 08/30/2024 Pfizer Covid-19 Vaccine 12+ 08/30/2024 Social History Tobacco Use Types Packs/Day Years [...] Orientation Straight 02/07/2023 4: 12 PM EDT Last Filed Vital Signs Vital Sign Reading [...] Mass Index 30.7 08/30/2024 9:06 AM EST Plan of Treatment Upcoming Encounters Date Type Department Care Team (Late st Contact Info) Description 09/13/2024 8:00 AM EST Office Visit [facility] [address] [place] [address] Simón Arzate, GUERO [address] [place] [address] Health Maintenance Due Date Last Done Comments Dental Oral Exam 1993 Dental Prophylaxis 1993 Dental X-Ray: Bitewings 1993 Dental X-Ray: Full Mouth 1993 HIV Screening 1993 Alcohol/Substance Use Screening 2005 Family Planning (PISQ) 2008 Hepatitis C Screening 2011 DTaP/Tdap/Td Vaccines (1 - Tdap) 2012 Hepatitis B Vaccines (1 of 3 - 19+ 3-dose series) 2012 Pneumococcal Vaccine: Pediatrics (0 to 5 Years) and At-Risk Patients (6 to 49) Years) (1 of 2 - PCV) 2012 SDOH Screening 07/18/2025 07/18/2024 Depression Screening 08/30/2025 08/30/2024, 08/30/2024 Tobacco Screening 08/30/2025 08/30/2024 Lipid Panel 12/17/2028 12/18/2023 Zoster Vaccines (1 of 2) 2043 RSV Patients and Patients Aged 60 years or older (1 - 1-dose 75+ series) 2068 COVID-19 Vaccine Completed 08/30/2024 Influenza Vaccine Completed 08/30/2024 HIB Vaccines Aged Out No longer eligi ble based on patient's age to complete this topic HPV Vaccines Aged Out No longer eligi ble based on patient's age to complete this topic Hepatitis A Vaccines Aged Out No long er eligible based on patient's age to complete this topic IPV Vaccines Aged Out No longer eligi ble based on patient's age to complete this topic Meningococcal Vaccine Aged Out No arnold sin eligible based on patient's age to complete this topic RSV under 20 months Aged Out No longe r eligible based on patient's age to complete this topic Rotavirus Vaccines Aged Out No longer eligible based on patient's age to complete this topic Procedures Procedure Name Priority Date/Time Associated Diagnosis Comments LIPID PANEL, STANDARD Routine 12/18/2023 4:03 PM EDT Overweight from Last 3 Months or Most Recently Relevant to Health Maintenance Results * (ABNORMAL) Lipid Panel, Standard (12/18/2023 4:03 PM EDT) Triglycerides 773(H) <150 mg/dL [facility] Comment:Desirable Triglyceri de: less than 150 mg/dLBorderline High Triglyceride 150-199 mg/dLHigh Triglyceride: 200-499 mg/dLVery High Triglyceride: greater than or equal to 5OO mg/dL Cholesterol 194 <200 mg/dL [facility] Comment:Desirable Cholestero l: less than 200 mg/dLBorderline High Cholesterol: 200-239 mg/dLHigh Cholesterol: greater than 239 mg/dL LDL Cholesterol Calculated TNP <100 mg/dL [facility] Comment:Unable to calculate the LDL. The formula of Friedwald,Cramer, and Mariely is only valid if the triglycerides areless than 400 mg/dl. HDL Cholesterol 30(L) >40 mg/dL [facility] Comment:Desirable HDL: great er than 40 mg/dL Note: This HDL assay may give artificially low results in patients with liver disease. Blood Venous blood specimen / Unknown 12/18/2023 4:03 PM EDT 12/18/2023 5:33 PM EDT us Soraya Andrade MD LAB BLOOD ORDERABLES Final Res ult [facility] [address] [place] [address] [phone] from Last 3 Months or Most Recently Relevant to Health Maintenance Insurance [facility] [place] [phone] Care Teams Tmr Teacher Relationship Specialty Start Date End Date Soraya Andrade MD [address] [place] [phone] PCP - General Family Medicine 03/08/23
[2024-08-30 11:02] LABS: MANUAL DIFF FLAG NO
[2024-08-30 11:14] LABS: Basophils Percent Auto 0.4 % (0-2); Eosinophils Absolute Auto 0.2 X10*3/uL (0.0-0.4); Hematocrit 44.8 % (42.0-52.0); Hemoglobin 15.5 g/dl (14.0-18.0); Imm Gran Abs Auto 0.01 X10*3/uL (0.00-0.03); Imm Gran Pct Auto 0.2 % (0.0-0.4); Lymphocytes Absolute Auto 2.2 X10*3/uL (1.2-4.9); Lymphocytes Percent Auto 38.6 % (20-40); Mean Corpuscular HGB Conc 34.6 g/dl (31.0-36.0); Mean Corpuscular Hemoglobin 30.5 pg (27.0-33.0); Mean Corpuscular Volume 88.2 fL (80.0-98.0); Mean Platelet Volume 12.3 fL (9.4-12.4); Monocytes Absolute Auto 0.5 X10*3/uL (0.1-1.2); Monocytes Percent Auto 9.3 % (2-11); Neutrophils Absolute Auto 2.8 x10*3/uL (2.0-8.3); Neutrophils Percent Auto 48.5 % (45-73); Platelet Count 145 X10*3/uL (160-400); Red Blood Count 5.08 X10*6/uL (4.60-5.80); Red Cell Distribution Width 11.9 % (11.0-16.0); White Blood Count 5.7 X10*3/uL (4.8-10.8)
[2024-08-30 11:59] LABS: Alanine Aminotransferase 63 U/L (0-40); Albumin Level 4.7 g/dL (3.5-5.0); Alkaline Phosphatase 68 U/L (39-117); Anion Gap 11 (12-20); Aspartate Amino Transferase 52 U/L (5-37); Bilirubin Total 2.6 mg/dL (0.0-1.0); Blood Urea Nitrogen 14 mg/dL (9-16); Calcium 9.8 mg/dL (8.4-10.2); Carbon Dioxide 27 mmol/L (22-29); Chloride 105 mmol/L (96-108); Cholesterol 146 mg/dL (<200); Estimated Glomerular Filt Rate > 60; Glucose Random 93 mg/dL (60-115); HDL Cholesterol 34 mg/dL (>40); LDL Cholesterol Calculated 63 mg/dL (<100); Potassium 4.4 mmol/L (3.3-5.1); Sodium 139 mmol/L (135-145); Total Protein 8.3 g/dL (6.5-8.0); Triglycerides 246 mg/dL (<150)
[2024-08-30 12:06] LABS: HIV AB/AG Nonreactive (Nonreactive); HIV Num 1 0.07 S/CO (0.00-0.99); ~Hepatitis C Antibody Nonreactive (Nonreactive)
== END 2024-08-30 09:53 | disposition home or self-care (01) ==
LOC: HO.HHCL 09:52
PROVIDERS: Visit Provider General Practice
DX: F10.90 Alcohol use, unspecified, uncomplicated (principal); E66.3 Overweight; Z11.4 Encounter for screening for human immunodeficiency virus [HIV]
CPT/HCPCS: 36415; 80053; 80061; 85025; 86803; 87389

== ENCOUNTER 2024-09-24 07:58 | Outpatient (REF) | payer MEDICAID, SELFPAY ==
--- NOTE | ~2024-09-24 | US_ITS ---
CLINICAL HISTORY: RUQ pain, drinking 15-20 beers daily US abdomen complete Comparison: CT - CT ABDOMEN PELVIS W IV CON - 05/28/22 19:08 EST US/SR - US ABDOMEN COMPLETE - 05/28/22 15:56 EST Findings: The visualized pancreas is normal. The aorta and inferior vena cava are normal caliber. The liver is normal in size with diffuse increase of echogenicity. Possible fat sparing adjacent to the gallbladder fossa 2.9 x 1.6 x 2 cm in size. There is no intrahepatic bile duct dilatation. The common duct is 3.0 mm in diameter. The gallbladder is normal. There is no sonographic Adler sign. The main portal vein is antegrade. The right kidney is 11 cm in length. The left kidney is 11.8 cm in length. The spleen is normal. No ascites. IMPRESSION: Diffuse increase of echogenicity of the liver favored to represent hepatic steatosis. Possible area of fat sparing adjacent to the gallbladder fossa. Ultrasound follow-up as indicated to exclude other possibilities. This document has been electronically signed by: Gume Diaz MD on 09/24/2024 16:24:25
--- OUTSIDE RECORDS SUMMARY | 2024-09-24 08:10 | XMS_ITS | Encounter Summary ---
Author Organization [employer] Address [address] [facility] [address] [place] [address] Care Team Providers Care Finish Machine Tender Name Role Phone Soraya Andrade MD Primary Care Provider [phone] Encounter Details Date Type Department Care Team [...] Care Team (Late st Contact Info) Description 10/04/2024 8:00 AM EDT Office Visit [facility] [address] [place] [address] Simón Arzate, GUERO [address] [place] [address] 01/13/2025 3:00 PM EDT Office Visit [facility] [address] [place] [address] Tonya Lim documented as of this encounter Visit Diagnoses Not on filedocumented in this encounter Additional Health Concerns Assessment Noted Time PHQ-9 Depression Total Score: 5 08/30/19 25 9:08 AM EST documented as of this encounter Care Teams Finish Machine Tender Relationship Specialty Start Date End Date Soraya Andrade MD [address] [place] [address] PCP - General Family Medicine 03/08/23 documented as of this encounter
--- OUTSIDE RECORDS SUMMARY | 2024-09-24 08:10 | XMS_ITS | Encounter Summary ---
Author Organization [employer] Address [address] [facility] [address] [place] [address] Care Team Providers Care Skiver Operator Name Role Phone Soraya Andrade MD Primary Care Provider [phone] Reason for Visit * Reason Comments Dental Exam X-ray Encounter Details Date Type Department Care Team ([facility] Contact Info) Description 09/13/2024 8:00 AM EST Office Visit [facility] [address] [place] [address] Simón Arzate, DMD [address] [place] [address] Social History Tobacco Use Types Packs/Day Years [...] housing situation today? I have yamilethabby lainez 07/18/[address] you [...] Sign Reading Time Taken Comments Blood Pressure 122/80 09/13/2024 8:10 AM EST Pulse 82 09/13/2024 8:10 AM EST Temperature - - Respiratory Rate - - Oxygen Saturation - - Inhaled Oxygen Concentration - - Weight - - Height - - Body Mass Index - - documented in this encounter Progress Notes * Simón Arzate DMD - 09/13/2024 8:00 AM EST C/C: dental exam and open bite for a long time I.O.E: erythematous and edematous gingiva, gen plaque and calculus accumulation, multiple carious teeth, extruded #16 E.O.E: anterior open bite , protruded mandible with class 3 mal-occlusion OCS: wnl Head and neck: wnl Radiographic: gen slight periodontal bone loss, localized calculus accumulation, extruded #16 Dx: gen chronic slight periodontitis, carious teeth, anterior open bite, type 3 malocclusion Tx: prophy, recall exam, fillings, sleep test for diagnosis of possible sleep apnea with PCP Pt complained of having difficult time to sleep and having sinus issue Pt declined to have possible orthognathic surgery to treat his anterior open bite and protruded mandible Ariela documented in this encounter Plan of Treatment Upcoming Encounters Date Type Department Care Team (Late st Contact Info) Description 10/04/2024 8:00 AM EDT Office Visit [facility] [address] [place] [address] Carito Simón, DMD [address] [place] [address] 01/13/2025 3:00 PM EDT Office Visit [facility] [address] [place] [address] Tonya Lim Scheduled Orders Name Type Priority Associated Diagnoses Orde r Schedule PROPHYLAXIS - ADULT Dental Routine 1 Occ urrences starting 09/13/2024 COMPREHENSIVE PERIODONTAL EVALUATION - NEW OR ESTABLISHED PATIENT Dental Routine 1 Occurrence s starting 09/13/2024 15 O 15 O RESIN-BASED COMPOSITE - 1 SURF, POSTERIOR Dental Routine [address] arting 09/13/2024 31 O 31 O RESIN-BASED COMPOSITE - 1 SURF, POSTERIOR Dental Routine [address] arting 09/23/2024 30 O 30 O RESIN-BASED COMPOSITE - 1 SURF, POSTERIOR Dental Routine [address] arting 09/23/2024 16 O 16 O RESIN-BASED COMPOSITE - 1 SURF, POSTERIOR Dental Routine [address] arting 09/23/2024 documented as of this encounter Procedures Procedure Name Priority Date/Time Associated Diagnosis Comments INTRAORAL - COMPLETE SERIES OF RADIOGRAPHIC IMAGES Routine 09/13/2024 8:00 AM EST COMPREHENSIVE ORAL EVALUATION - NEW OR ESTABLISHED PATIENT Routine 09/13/2024 8:00 AM EST CASE PRESENTATION, DETAILED AND EXTENSIVE TREATMENT PLANNING Routine 09/13/2024 8:00 AM EST documented in this encounter Visit Diagnoses Not on filedocumented in this encounter Additional Health Concerns Assessment Noted Time PHQ-9 Depression Total Score: 5 08/30/19 25 9:08 AM EST documented as of this encounter Care Teams Skiver Operator Relationship Specialty Start Date End Date Soraya Andrade MD [address] [place] [address] PCP - General Family Medicine 03/08/23 documented as of this encounter
--- OUTSIDE RECORDS SUMMARY | 2024-09-24 08:10 | XMS_ITS | Encounter Summary ---
Author Organization [employer] Address [address] [facility] 7[address] [place] [address] Care Team Providers Care Senior Court Office Assistant Name Role Phone Leroy Hinojosa MD Primary Care Provider [phone] Reason for Referral * Hospital - Outpatient (Routine) - Authorized Specialty Diagnoses / Procedures Referred By Kendall singh Referred To Contact Diagnoses Daytime somnolence Procedures Polysomnography Leroy Hinojosa MD [address] [place] [address] Phone: tel: fax: [address] Phone: tel: fax: Referral ID Status Reason Start Date Expiration Date V isits Requested Visits Authorized [id number] Authorized 09/18/2024 09/18/2025 1 1 * Imaging (Routine) - Authorized Specialty Diagnoses / Procedures Referred By Contac t Referred To Contact Radiology Diagnoses Alcohol use disorder Procedures US Abdomen Complete Leroy Hinojosa MD [address] [place] [address] Phone: tel: fax: [address] Phone: tel: fax: Referral ID Status Reason Start Date Expiration Date V isits Requested Visits Authorized [id number] Authorized 08/30/2024 08/30/2025 1 1 Reason for Visit * Reason Comments Annual Exam Encounter Details Date Type Department Care Team (Late st Contact Info) Description 08/30/2024 9:00 AM EST Office Visit [facility] MEDICINE [address] [place] [address] Leroy Hinojosa MD [address] [place] [address] Alcohol use disorder (Primary Dx); Gastroesophageal reflux disease without esophagitis; Non-specific low back pain; Dietary counseling; Exercise counseling; Overweight; Encounter for immunization; Daytime somnolence Social History Tobacco Use Types Packs/Day Years [...] 9:06 AM EST documented in this encounter Progress Notes * Leroy Hinojosa MD - 08/30/2024 9:00 AM EST Images from the original note were not included. SUBJECTIVE: Stephen Brar is a 29 y.o. year old male who presents for routine physical exam. Denies recent illness, ER visit, or hospitalization. Acute Concerns: Back pain at paraspinous muscles of mid-back and lower back 2. 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 Cardiac history from [facility] Normal Echo and Holter here Having treadmill stress test ER visit 06/2023 for chest pain following cocaine use, normal troponins and EKG PSH none FH mom with heart disease, dad healthy, he is one of 12 kids, no known diseases Health Maintenance STI- acccepts today Imms- PCV, Td, Hep B Lab Results Since Your Last Visit as of 08/30/2024, sorted by update time Updated Procedure 08/30/24 1224 HIV-1/2 Antigen and Antibodies, Fourth Generation, with Reflexes Collected: 08/30/24954 Final result Specimen: Blood, Venous HIV AB/AG Nonreactive 08/30/24 1224 Hepatitis C Antibody with Reflex to HCV, RNA, Quantitative, Real- Time PCR Collected: 08/30/24954 Final result Specimen: Blood, Venous Hepatitis C Antibody Nonreactive 08/30/24 1159 Comprehensive Metabolic Panel Collected: 08/30/24954 Final result Specimen: Blood, Venous Sodium 139 mmol/L Glucose 93 mg/dL Potassium 4.4 mmol/L Calcium 9.8 mg/dL Chloride 105 mmol/L Bilirubin, Total 2.6 High mg/dL Carbon Dioxide 27 mmol/L Aspartate Amino Transferase 52 High U/L Anion Gap 11 Low Alanine Aminotransferase 63 High U/L Urea Nitrogen (BUN) 14 mg/dL Total Protein 8.3 High g/dL Creatinine, Serum 1.04 mg/dL Albumin Level 4.7 g/dL Estimated Glomerular Filt Rate >60 Alkaline Phosphatase 68 U/L 08/30/24 1159 Lipid Panel, Standard Collected: 08/30/24954 Final result Specimen: Blood, Venous Triglycerides 246 High mg/dL LDL Cholesterol Calculated 63 mg/dL Cholesterol 146 mg/dL HDL Cholesterol 34 Low mg/dL 08/30/24 1115 CBC auto differential Collected: 08/30/24954 Final result Specimen: Blood, Venous White Blood Count 5.7 X10*3/uL Lymphocytes Percent Auto 38.6 % Red Blood Count 5.08 X10*6/uL Monocytes Percent Auto 9.3 % Hemoglobin 15.5 g/dl Eosinophils Percent Auto 3.0 % Hematocrit 44.8 % Basophils Percent Auto 0.4 % Mean Corpuscular Volume 88.2 fL NRBC Pct Auto 0.0 /100WBC Mean Corpuscular Hemoglobin 30.5 pg Neutrophils Absolute Auto 2.8 x10*3/uL Mean Corpuscular HGB Conc 34.6 g/dl Imm Gran Abs Auto 0.01 X10*3/uL Red Cell Distribution Width 11.9 % Lymphocytes Absolute Auto 2.2 X10*3/uL Platelet Count 145 Low X10*3/uL Monocytes Absolute Auto 0.5 X10*3/uL Mean Platelet Volume 12.3 fL Eosinophils Absolute Auto 0.2 X10*3/uL Neutrophils Percent Auto 48.5 % Basophils Absolute Auto 0.0 X10*3/uL Imm Gran Pct Auto 0.2 % NRBC Abs Auto 0.000 X10*3/uL Patient Active Problem List Diagnosis Chronic gastric ulcer without hemorrhage and without perforation Palpitation Severe anxiety with panic Alcohol use disorder Overweight Daytime somnolence History reviewed. No pertinent surgical history. No family history on file. Social History Social History Narrative Living with roommates, moved from [facility] in Jun 2022 Working in [employer] Smokes 2 packs of cigs on weekend, binge drinking beer on Sat/Sun (12 beers a day) Review of Systems Constitutional: Negative. Respiratory: Negative. Cardiovascular: Negative. Gastrointestinal: Positive for abdominal pain. Negative for abdominal distention, anal bleeding, blood in stool, constipation, diarrhea, nausea, rectal pain and vomiting. Skin: Negative. OBJECTIVE: Vitals: 08/30/24 0906 BP: 135/84 BP Location: Right arm Patient Position: Sitting BP Cuff Size: Adult Pulse: 68 Resp: 17 Temp: 97.8 ??F (36.6 ??C) TempSrc: Temporal SpO2: 98% Weight: 196 lb (88.9 kg) Height: 5' 7 (1.702 m) Physical Exam Vitals and nursing note reviewed. Constitutional: Appearance: Normal appearance. He is normal weight. HENT: Head: Normocephalic and atraumatic. Cardiovascular: Rate and Rhythm: Normal rate and regular rhythm. Pulses: Normal pulses. Heart sounds: Normal heart sounds. Pulmonary: Effort: Pulmonary effort is normal. Breath sounds: Normal breath sounds. Musculoskeletal: Cervical back: Normal range of motion and neck supple. Skin: General: Skin is warm and dry. Capillary Refill: Capillary refill takes less than 2 seconds. Neurological: General: No focal deficit present. Mental Status: He is alert and oriented to person, place, and time. Psychiatric: Mood and Affect: Mood normal. Behavior: Behavior normal. ASSESSMENT/PLAN Problem List Items Addressed This Visit Alcohol use disorder - Primary Relevant Orders HIV-1/2 Antigen and Antibodies, Fourth Generation, with Reflexes (Completed) Hepatitis C Antibody with Reflex to HCV, RNA, Quantitative, Real-Time PCR (Completed) CBC auto differential (Completed) US Abdomen Complete Overweight Relevant Orders Comprehensive Metabolic Panel (Completed) Lipid Panel, Standard (Completed) Daytime somnolence Overview STOP BANG of 4 Order PSG Relevant Orders Polysomnography Other Visit Diagnoses Gastroesophageal reflux disease without esophagitis Relevant Medications omeprazole (PriLOSEC) [address] capsule Non-specific low back pain MOist heat x 10 min x 2 daily Meloxicam and methocarbamol as directed Follow up with PCP after completion of the PT sessions. Relevant Medications meloxicam (Mobic) 15 MG tablet Dietary counseling Exercise counseling Encounter for immunization Relevant Orders FLU VACCINE TRIVALENT (Fluarix) 6 mo + (Completed) COVID-19 VACCINE (Pfizer) 7567-1030 12 yrs + (Completed) Follow Up: 6 months or sooner prn No Known Allergies Current Outpatient Medications: Acetaminophen Extra Strength 500 MG tablet, Take 1 tablet (500 mg) by mouth every 6 (six) hours if needed (pain)., Disp: 60 tablet, Rfl: 11 atorvastatin (Lipitor) 40 MG tablet, TAKE 1 TABLET BY MOUTH EVERY DAY, Disp: 90 tablet, Rfl: 3 escitalopram (Lexapro) 5 MG tablet, Take 1 tablet (5 mg) by mouth Once per day., Disp: 90 tablet, Rfl: 3 lidocaine (Lidoderm) 5 % patch, PLEASE SEE ATTACHED FOR DETAILED DIRECTIONS (Patient not taking: Reported on 09/13/2024), Disp: , Rfl: meloxicam (Mobic) 15 MG tablet, TAKE 1 TABLET BY MOUTH EVERY DAY, Disp: 90 tablet, Rfl: 3 Menthol-Methyl Salicylate (Muscle Rub) 10-15 % cream, Apply 1 Application topically if needed in the morning and at bedtime (pain). (Patient not taking: Reported on 09/13/2024), Disp: 85 g, Rfl: 0 methocarbamol (Robaxin) 750 MG tablet, Take 1 tablet (750 mg) by mouth 4 times daily for 10 days., Disp: 40 tablet, Rfl: 0 omeprazole (PriLOSEC) [address] capsule, Take 1 capsule (20 mg) by mouth Once per day., Disp: 90 capsule, Rfl: 3 Armenian Translation: Provided by [facility] staff member CHAYO Rodriguez documented in this encounter Miscellaneous Notes * Addendum Note - Leroy Hinojosa MD - 08/30/2024 9:00 AM ESTAddended by: LEROY HINOJOSA on: 09/18/2024 04:31 PM Modules accepted: Orders documented in this encounter Plan of Treatment Upcoming Encounters Date Type Department Care Team (Late st Contact Info) Description 10/04/2024 8:00 AM EDT Office Visit [facility] ADULT DENTAL [address] [place] [address] Carito Simón, DMD [address] [place] [address] 01/13/2025 3:00 PM EDT Office Visit [facility] ADULT DENTAL [address] [place] [address] Tonya Lim Scheduled Orders Name Type Priority Associated Diagnoses Orde r Schedule US Abdomen Complete Imaging Routine Alcohol use disorder Expected: 08/30/2024, Expires: 08/30/2025 Polysomnography [facility] Routine Daytime somnolence Expected: 09/18/2024 (Approximate), Expires: 09/18/2025 documented as of this encounter Procedures Procedure Name Priority Date/Time Associated Diagnosis Comments CBC WITH AUTO DIFFERENTIAL Routine 08/30/2024 9:55 AM EST Alcohol use disorder HEPATITIS C AB W/REFL TO HCV RNA, QN, PCR Routine 08/30/2024 9:55 AM EST Alcohol use disorder HIV 1/2 ANTIGEN/ANTIBODY, FOURTH GENERATION W/RFL Routine 08/30/2024 9:55 AM EST Alcohol use disorder LIPID PANEL, STANDARD Routine 08/30/2024 9:55 AM EST Overweight COMPREHENSIVE METABOLIC PANEL Routine 08/30/2024 9:55 AM EST Overweight documented in this encounter Results * (ABNORMAL) CBC auto differential (08/30/2024 9:55 AM EST) White Blood Count 5.7 4.8 - 10.8 X10*3/uL [facility] Red Blood Count 5.08 4.60 - 5.80 X10*6/uL [facility] Hemoglobin 15.5 14.0 - 18.0 g/dl [facility] Hematocrit 44.8 42.0 - 52.0 % [facility] Mean Corpuscular Volume 88.2 80.0 - 98.0 fL [facility] Mean Corpuscular Hemoglobin 30.5 27.0 - 33.0 pg [facility] Mean Corpuscular HGB Conc 34.6 31.0 - 36.0 g/dl [facility] Red Cell Distribution Width 11.9 11.0 - 16.0 % [facility] Platelet Count 145(L) 160 - 400 X10*3/uL [facility] Mean Platelet Volume 12.3 9.4 - 12.4 fL [facility] Neutrophils Percent Auto 48.5 45 - 73 % [facility] Imm Gran Pct Auto 0.2 0.0 - 0.4 % [facility] Lymphocytes Percent Auto 38.6 20 - 40 % [facility] Monocytes Percent Auto 9.3 2 - 11 % [facility] Eosinophils Percent Auto 3.0 0 - 4 % [facility] Basophils Percent Auto 0.4 0 - 2 % [facility] NRBC Pct Auto 0.0 0.0 - 0.2 /100WBC [facility] Neutrophils Absolute Auto 2.8 2.0 - 8.3 x10*3/uL [facility] Imm Gran Abs Auto 0.01 0.00 - 0.03 X10*3/uL [facility] Lymphocytes Absolute Auto 2.2 1.2 - 4.9 X10*3/uL [facility] Monocytes Absolute Auto 0.5 0.1 - 1.2 X10*3/uL [facility] Eosinophils Absolute Auto 0.2 0.0 - 0.4 X10*3/uL [facility] Basophils Absolute Auto 0.0 0.0 - 0.2 X10*3/uL [facility] NRBC Abs Auto 0.000 0.0 - 0.012 X10*3/uL [facility] Blood Venous blood specimen / Unknown 08/30/2024 9:55 AM EST 08/30/2024 10:59 AM EST Leroy Hinojosa MD LAB BLOOD ORDERABLES Final Res ult Performing Organization Address [facility] de Phone Number [facility] [address] [place] [phone] * (ABNORMAL) Lipid Panel, Standard (08/30/2024 9:55 AM EST) Triglycerides 246(H) <150 mg/dL [facility] Comment:Desirable Triglyceri de: less than 150 mg/dLBorderline High Triglyceride 150-199 mg/dLHigh Triglyceride: 200-499 mg/dLVery High Triglyceride: greater than or equal to 5OO mg/dL Cholesterol 146 <200 mg/dL [facility] Comment:Desirable Cholestero l: less than 200 mg/dLBorderline High Cholesterol: 200-239 mg/dLHigh Cholesterol: greater than 239 mg/dL LDL Cholesterol Calculated 63 <100 mg/dL [facility] Comment:Desirable LDL: less than 100 mg/dLNear Optimal/Above Optimal LDL: 110- 129 mg/dLBorderline High LDL: 130-159 mg/dLHigh LDL: 160-189 mg/dLVery High LDL: greater than or equal to 190 mg/dL HDL Cholesterol 34(L) >40 mg/dL [facility] Comment:Desirable HDL: great er than 40 mg/dL Note: This HDL assay may give artificially low results in patients with liver disease. Blood Venous blood specimen / Unknown 08/30/2024 9:55 AM EST 08/30/2024 10:59 AM EST us Leroy Hinojosa MD LAB BLOOD ORDERABLES Final Res ult Performing Organization Address [facility]/ZIP Co de Phone Number [facility] [address] [place] [phone] * (ABNORMAL) Comprehensive Metabolic Panel (08/30/2024 9:55 AM EST) Sodium 139 135 - 145 mmol/L [facility] Potassium 4.4 3.3 - 5.1 mmol/L [facility] Chloride 105 96 - 108 mmol/L [facility] Carbon Dioxide 27 22 - 29 mmol/L [facility] Anion Gap 11(L) 12 - 20 [facility] Urea Nitrogen (BUN) 14 9 - 16 mg/dL [facility] Creatinine, Serum 1.04 0.5 - 1.4 mg/dL [facility] Estimated Glomerular Filt Rate >60 [facility] Comment:Chronic Kidney Disea se: Estimated GFR < 60 mL/min/[id number] Kidney Disease: Estimated GFR < 15 mL/min/1.73m2 Glucose 93 60 - 115 mg/dL [facility] Calcium 9.8 8.4 - 10.2 mg/dL [facility] Bilirubin, Total 2.6(H) 0.0 - 1.0 mg/dL [facility] Comment:Slight Icterus. Aspartate Amino Transferase 52(H) 5 - 37 U/L [facility] Alanine Aminotransferase 63(H) 0 - 40 U/L [facility] Total Protein 8.3(H) 6.5 - 8.0 g/dL [facility] Albumin Level 4.7 3.5 - 5.0 g/dL [facility] Alkaline Phosphatase 68 39 - 117 U/L [facility] Blood Venous blood specimen / Unknown 08/30/2024 9:55 AM EST 08/30/2024 10:59 AM EST us Leroy Hinojosa MD LAB BLOOD ORDERABLES Final Res ult [facility] [address] [place] [phone] * Hepatitis C Antibody with Reflex to HCV, RNA, Quantitative, Real-Time PCR (08/30/2024 9:55 AM EST) Hepatitis C Antibody Nonreactive Nonreactive [facility] Comment:Antibodies to HCV no t detected; does not exclude early acuteHCV infection. Blood Venous blood specimen / Unknown 08/30/2024 9:55 AM EST 08/30/2024 10:59 AM EST Leroy Hinojosa MD LAB BLOOD ORDERABLES Final Res ult Performing Organization Address [facility]/ZIP Co de Phone Number [facility] [address] [place] [phone] * HIV-1/2 Antigen and Antibodies, Fourth Generation, with Reflexes (08/30/2024 9:55 AM EST) HIV AB/AG Nonreactive Nonreactive [facility] Comment:HIV-1 p24 Ag and/or HIV-1/HIV-2 Ab not detected.A test result that is nonreactive does not exclude thepossibility of exposure to or infection with HIV-1 and/orHIV-2. Nonreactive results in this assay for individualswith prior exposure to HIV-1 and/or HIV-2 may be due toantigen and antibody levels that are below the limit ofdetection of this assay.[employer] HIV Ag/Ab Combo assay result andsupplemental assay results should be interpreted inconjunction with the patient's clinical presentation,history and other laboratory results. If the results areinconsistent with clinical evidence, additional testing issuggested to confirm the result. Blood Venous blood specimen / Unknown 08/30/2024 9:55 AM EST 08/30/2024 10:59 AM EST us Leroy Hinojosa MD LAB BLOOD ORDERABLES Final Res ult Performing Organization Address [facility]/ZIP Co de Phone Number [facility] [address] [place] [phone] documented in this encounter Visit Diagnoses Diagnosis Alcohol use disorder- Primary Gastroesophageal reflux disease without esophagitis Esophageal reflux Non-specific low back pain Dietary counseling Dietary surveillance and counseling Exercise counseling Overweight Encounter for immunization Daytime somnolence documented in this encounter Additional Health Concerns Assessment Noted Time PHQ-9 Depression Total Score: 5 08/30/19 25 9:08 AM EST documented as of this encounter Care Teams Senior Court Office Assistant Relationship Specialty Start Date End Date Leroy Hinojosa MD [address] [place] [address] PCP - General Family Medicine 03/08/23 documented as of this encounter
--- OUTSIDE RECORDS SUMMARY | 2024-09-24 08:10 | XMS_ITS | Encounter Summary ---
Author Organization [employer] Address [address] [place] [address] Care Team Providers Care Food Production Associate Name Role Phone Soraya Andrade MD Primary Care Provider [phone] Encounter Details Date Type Department Care Team ([facility] st Contact Info) Description 08/30/2024 Telephone [facility] MEDICINE [address] [place], [place] [phone] Soraya Andrade MD [address] [place] [address] Social History Tobacco Use Types Packs/Day Years [...] PM EDT documented as of this encounter Miscellaneous Notes * Telephone Encounter - Linda Kasper RN - 08/30/2024 2:15 PM EST T/C placed to pt via [employer] Artist Agent # . Advised of message from PCP re: lab results and recommendation to reduce or omit alcohol intake. Advised pt more information will be available following US. Pt verbalized understanding. * Telephone Encounter - Linda Kasper RN - 08/30/2024 2:11 PM EST ----- Message from Soraya Andrade MD sent at 08/30/2024 2:00 PM EST ----- Please call patient and let him know that his liver is showing signs of damage from excess alcohol drinking. He should hear about scheduling his ultrasound, but given his labs would recommend he cut back or quit completely. documented in this encounter Plan of Treatment Upcoming Encounters Date Type Department Care Team (Late st Contact Info) Description 10/04/2024 8:00 AM EDT Office Visit [facility] ADULT DENTAL [address] [place] [address] Simón Arzate, DMD [address] [place] [address] 01/13/2025 3:00 PM EDT Office Visit [facility] ADULT DENTAL [address] [place] [address] Tonya Lim documented as of this encounter Visit Diagnoses Not on filedocumented in this encounter Additional Health Concerns Assessment Noted Time PHQ-9 Depression Total Score: 5 08/30/19 25 9:08 AM EST documented as of this encounter Care Teams Food Production Associate Relationship Specialty Start Date End Date Soraya Andrade MD [address] [place] [address] PCP - General Family Medicine 03/08/23 documented as of this encounter
--- OUTSIDE RECORDS SUMMARY | 2024-09-24 08:10 | XMS_ITS | Clinical Summary ---
Author Organization [employer] Address [address] [facility] 7t [place] [address] Care Team Providers Care Behavior Support Specialist Name Role Phone Soraya Andrade MD Primary Care Provider Allergies No known active allergies Medications * [...] bedtime (pain). 85 g 12/18/19 24 Active Additional Information Patient not taking.Reported on 09/13/2024 methocarbamol (Robaxin) 750 MG tabletIndicati ons:Non-specif ic [...] IN THE MORNING 90 capsule 3 04/12/20 24 025 Discontinued(R eorder (will not trigger notification to Pharmacy)) Active Problems Problem Noted Date Diagnosed Date Daytime somnolence 09/18/2024 Overview (09/18/2024): STOP BANG of 4 Order PSG Overweight 12/20/2023 Assessment & Plan (12/20/2023 4:20 [...] trauma in childhood, move from [place] country [place] [place] to [place] a year and two months ago, financial [...] seek help. PLAN: 1. Follow up with [facility] [place]: Not recommended for follow-up 2. Patient goal is to improve mental health to manage symptoms 3. Behavioral Recommendations a. Ind. Therapy, referral will be submitted b. Use of coping skills provided as recommended. c. [facility] contact number for support. Alcohol use disorder 03/10/2023 Assessment & Plan (12/20/2023 4:20 PM EDT): Recommended decreasing sugary drinks to 1-2 daily as this can affect his mood and weight Encounters Date Type Department Care Team Description 09/23/2024 2:00 PM EDT Office Visit [facility] AD[facility] D[facility] [address] [place] [address] Simón Arzate DMD 09/18/2024 Telephone [facility] [address] [place] [address] Soraya Andrade MD STOPBANG Questionaire 09/13/2024 8:00 AM EST Office Visit [facility] [address] [place] [phone] Carito SimónGUERO 09/13/[address] [address] Soraya Andrade MD telephone call 08/30/2024 9:00 AM EST Office Visit [address] [address] Soraya Andrade MD Alcohol use disorder (Primary Dx); Gastroesophageal reflux disease without esophagitis; Non-specific low back pain; Dietary counseling; Exercise counseling; Overweight; Encounter for immunization; Daytime somnolence 08/30/[address] [address] Soraya Andrade MD 08/30/2024 Travel 08/19/2024 Patient Outreach [address] [address] Soraya Andrade MD Pre-visit Planning ((Unable to reach for PVP screening, LVM)) 07/26/[address] [address] Soraya Andrade MD Nurse Triage 07/19/2024 Patient Outreach [address] [address] Soraya Andrade MD Care Coordination ([address] Connie Flowers telephone call outreach) 07/18/2024 Patient Outreach [address] [address] Soraya Andrade MD Pre-visit Planning (SDOH screening positive and tobacco screening positive) from Last 3 Months Immunizations Name Administration [...] Sign Reading Time Taken Comments Blood Pressure 134/78 09/23/2024 2:15 PM EDT Pulse 82 09/13/2024 8:10 AM EST Temperature 36.6 ??C (97.8 ??F) [...] Description 10/04/2024 8:00 AM EDT Office Visit [facility] [address] [place] [address] Simón Arzate, DMD [address] [place] [address] 01/13/2025 3:00 PM EDT Office Visit [facility] [address] [place] [address] LimCarter fergusonsa Health Maintenance Due Date Last Done Comments Dental Prophylaxis 1993 Alcohol/Substance Use Screening 2005 DTaP/Tdap/Td Vaccines (1 - Tdap) 2012 Hepatitis B Vaccines (1 of 3 - 19+ 3-dose series) 2012 Pneumococcal Vaccine: Pediatrics (0 to 5 Years) and At-Risk Patients (6 to 49) Years) (1 of 2 - PCV) 2012 Dental Oral Exam 03/14/2025 09/13/2024 SDOH Screening 07/18/2025 07/18/2024 Depression Screening 08/30/2025 08/30/2024, 08/30/2024 Family Planning (PISQ) 08/30/2025 08/30/2024 Dental X-Ray: Bitewings 09/14/2025 09/13/2024 Tobacco Screening 09/23/2025 09/23/2024 Dental X-Ray: Full Mouth 09/14/2027 09/13/2024 Lipid Panel 08/30/2029 08/30/2024, 12/18/2023 Zoster Vaccines (1 of 2) 2043 RSV Patients and Patients Aged 60 years or older (1 - 1-dose 75+ series) 2068 COVID-19 Vaccine Completed 08/30/2024 HIV Screening Completed 08/30/2024 Hepatitis C Screening Completed 08/30/2024 Influenza Vaccine Completed 08/30/2024 HIB [...] Procedure Name Priority Date/Time Associated Diagnosis Comments CASE PRESENTATION, DETAILED AND EXTENSIVE TREATMENT PLANNING Routine 09/23/2024 2:00 PM EDT 19 JACKELINE RESIN-BASED COMPOSITE - 2 SURF, POSTERIOR Routine 09/23/2024 2:00 PM EDT 18 JACKELINE RESIN-BASED COMPOSITE - 2 SURF, POSTERIOR Routine 09/23/2024 2:00 PM EDT CASE PRESENTATION, DETAILED AND EXTENSIVE TREATMENT PLANNING Routine 09/13/2024 8:00 AM EST INTRAORAL - COMPLETE SERIES OF RADIOGRAPHIC IMAGES Routine 09/13/2024 8:00 AM EST COMPREHENSIVE ORAL EVALUATION - NEW OR ESTABLISHED PATIENT Routine 09/13/2024 8:00 AM EST CBC WITH AUTO DIFFERENTIAL Routine 08/30/2024 9:55 AM EST Alcohol use disorder LIPID PANEL, STANDARD Routine 08/30/2024 9:55 AM EST Overweight COMPREHENSIVE METABOLIC PANEL Routine 08/30/2024 9:55 AM EST Overweight HEPATITIS C AB W/REFL TO HCV RNA, QN, PCR Routine 08/30/2024 9:55 AM EST Alcohol use disorder HIV 1/2 ANTIGEN/ANTIBODY, FOURTH GENERATION W/RFL Routine 08/30/2024 9:55 AM EST Alcohol use disorder from Last 3 Months Results * (ABNORMAL) CBC auto differential (08/30/2024 9:55 AM EST) White Blood Count 5.7 4.8 - 10.8 X10*3/uL [facility] Red Blood Count 5.08 4.60 - 5.80 X10*6/uL [facility] Hemoglobin 15.5 14.0 - 18.0 g/dl [facility] Hematocrit 44.8 42.0 - 52.0 % [facility] Mean Corpuscular Volume 88.2 80.0 - 98.0 fL [facility] Mean Corpuscular Hemoglobin 30.5 27.0 - 33.0 pg [facility] Mean Corpuscular HGB Conc 34.6 31.0 - 36.0 g/dl [facility] Red Cell Distribution Width 11.9 11.0 - 16.0 % [facility] Platelet Count 145(L) 160 - 400 X10*3/uL [facility] Mean Platelet Volume 12.3 9.4 - 12.4 fL [facility] Neutrophils Percent Auto 48.5 45 - 73 % [facility] Imm Gran Pct Auto 0.2 0.0 - 0.4 % [facility] Lymphocytes Percent Auto 38.6 20 - 40 % [facility] Monocytes Percent Auto 9.3 2 - 11 % [facility] Eosinophils Percent Auto 3.0 0 - 4 % [facility] Basophils Percent Auto 0.4 0 - 2 % [facility] NRBC Pct Auto 0.0 0.0 - 0.2 /100WBC [facility] Neutrophils Absolute Auto 2.8 2.0 - 8.3 x10*3/uL [facility] Imm Gran Abs Auto 0.01 0.00 - 0.03 X10*3/uL [facility] Lymphocytes Absolute Auto 2.2 1.2 - 4.9 X10*3/uL [facility] Monocytes Absolute Auto 0.5 0.1 - 1.2 X10*3/uL [facility] Eosinophils Absolute Auto 0.2 0.0 - 0.4 X10*3/uL [facility] Basophils Absolute Auto 0.0 0.0 - 0.2 X10*3/uL [facility] NRBC Abs Auto 0.000 0.0 - 0.012 X10*3/uL [facility] Blood Venous blood specimen / Unknown 08/30/2024 9:55 AM EST 08/30/2024 10:59 AM EST Soraya Andrade MD LAB BLOOD ORDERABLES Final Res ult Performing Organization Address [facility] Co de Phone Number [facility] [address] [place] [phone] * Hepatitis C Antibody with Reflex to HCV, RNA, Quantitative, Real-Time PCR (08/30/2024 9:55 AM EST) Hepatitis C Antibody Nonreactive Nonreactive [facility] Comment:Antibodies to HCV no t detected; does not exclude early acuteHCV infection. Blood Venous blood specimen / Unknown 08/30/2024 9:55 AM EST 08/30/2024 10:59 AM EST Soraya Andrade MD LAB BLOOD ORDERABLES Final Res ult Performing Organization Address [facility] de Phone Number [facility] [address] [place] [phone] * HIV-1/2 Antigen and Antibodies, Fourth Generation, with Reflexes (08/30/2024 9:55 AM EST) Pathologist [facility] HIV AB/AG Nonreactive Nonreactive [facility] Comment:HIV-1 p24 Ag and/or HIV-1/HIV-2 Ab not detected.A test result that is nonreactive does not exclude thepossibility of exposure to or infection with HIV-1 and/orHIV-2. Nonreactive results in this assay for individualswith prior exposure to HIV-1 and/or HIV-2 may be due toantigen and antibody levels that are below the limit ofdetection of this assay.[employer] HIV Ag/Ab Combo assay result andsupplemental assay results should be interpreted inconjunction with the patient's clinical presentation,history and other laboratory results. If the results areinconsistent with clinical evidence, additional testing issuggested to confirm the result. Blood Venous blood specimen / Unknown 08/30/2024 9:55 AM EST 08/30/2024 10:59 AM EST Soraya Andrade MD LAB BLOOD ORDERABLES Final Res ult Performing Organization Address City/[facility] Co de Phone Number [facility] [address] [place] [address] [phone] * (ABNORMAL) Lipid Panel, Standard (08/30/2024 9:55 AM EST) Triglycerides 246(H) <150 mg/dL [facility] Comment:Desirable Triglyceri de: less than 150 mg/dLBorderline High Triglyceride 150-199 mg/dLHigh Triglyceride: 200-499 mg/dLVery High Triglyceride: greater than or equal to 5OO mg/dL Cholesterol 146 <200 mg/dL [facility] Comment:Desirable Cholestero l: less than 200 mg/dLBorderline High Cholesterol: 200-239 mg/dLHigh Cholesterol: greater than 239 mg/dL LDL Cholesterol Calculated 63 <100 mg/dL [facility] Comment:Desirable LDL: less than 100 mg/dLNear Optimal/Above Optimal LDL: 110- 129 mg/dLBorderline High LDL: 130-159 mg/dLHigh LDL: 160-189 mg/dLVery High LDL: greater than or equal to 190 mg/dL HDL Cholesterol 34(L) >40 mg/dL [facility] Comment:Desirable HDL: great er than 40 mg/dL Note: This HDL assay may give artificially low results in patients with liver disease. Blood Venous blood specimen / Unknown 08/30/2024 9:55 AM EST 08/30/2024 10:59 AM EST us Soraya Andrade MD LAB BLOOD ORDERABLES Final Res ult Performing Organization Address City/[facility]/ZIP Co de Phone Number [facility] [address] [place] [phone] * (ABNORMAL) Comprehensive Metabolic Panel (08/30/2024 9:55 AM EST) Sodium 139 135 - 145 mmol/L [facility] Potassium 4.4 3.3 - 5.1 mmol/L [facility] Chloride 105 96 - 108 mmol/L [facility] Carbon Dioxide 27 22 - 29 mmol/L [facility] Anion Gap 11(L) 12 - 20 [facility] Urea Nitrogen (BUN) 14 9 - 16 mg/dL [facility] Creatinine, Serum 1.04 0.5 - 1.4 mg/dL [facility] Estimated Glomerular Filt Rate >60 [facility] Comment:Chronic Kidney Disea se: Estimated GFR < 60 mL/min/1.04e2Ywpyep Kidney Disease: Estimated GFR < 15 mL/min/1.73m2 Glucose 93 60 - 115 mg/dL [facility] Calcium 9.8 8.4 - 10.2 mg/dL [facility] Bilirubin, Total 2.6(H) 0.0 - 1.0 mg/dL [facility] Comment:Slight Icterus. Aspartate Amino Transferase 52(H) 5 - 37 U/L [facility] Alanine Aminotransferase 63(H) 0 - 40 U/L [facility] Total Protein 8.3(H) 6.5 - 8.0 g/dL [facility] Albumin Level 4.7 3.5 - 5.0 g/dL [facility] Alkaline Phosphatase 68 39 - 117 U/L [facility] Blood Venous blood specimen / Unknown 08/30/2024 9:55 AM EST 08/30/2024 10:59 AM EST us Soraya Andrade MD LAB BLOOD ORDERABLES Final Res ult [facility] [address] [place] [address] [phone] from Last 3 Months [facility] MEDICAID STAND ADULT Care Teams Behavior Support Specialist Relationship Specialty Start Date End Date Soraya Andrade MD [address] [place] [phone] PCP - General Family Medicine 03/08/23
--- OUTSIDE RECORDS SUMMARY | 2024-09-24 08:11 | XMS_ITS | Encounter Summary ---
Author Organization [employer] Address [address] [facility] [address] [address] [place] [address] Care Team Providers Care Traffic Checker Name Role Phone Soraya Andrade MD Primary Care Provider [phone] Reason for Visit * Reason Onset Date Comments telephone call 09/13/2024 Encounter Details Date Type Department Care Team ([facility] Contact Info) Description 09/13/2024 Telephone [facility] MEDICINE [address] [place], [place] [phone] Soraya Andrade MD [address] [place] [address] telephone call Social History Tobacco Use Types Packs/Day Years [...] encounter Miscellaneous Notes * Telephone Encounter - Aminata Butcher RN - 09/18/2024 1:36 PM EST TC placed to patient [phone] to complete STOP BANG questionnaire. Results of STOP BANG: STOP-Bang Questionnaire Results: Your score is 4 / 8 You have answered Yes to 2 or more of 4 STOP questions + male gender Therefore, you are at High Risk for Obstructive Sleep Apnea (MUNDO) Patient informed PCP will order sleep study based on above results. Patient verbalized understanding and reports he prefers in home sleep study as he has difficulty sleeping elsewhere however if it has to be in facility he will still complete sleep study. Patient advised he will receive a call regarding sleep study scheduling. Please review and create addendum/order sleep study. Thank you! * Telephone Encounter - Aminata Butcher RN - 09/13/2024 9:18 AM EST RN called [facility] dental and spoke to the review assistant for Dr. Arzate who reports the provider recommended a sleep study for the patient due to his lower jaw moving forward and the patient reported c/o dry mouth. Per dental provider this could indicate sleep apnea and patient should have sleep study performed. Please review and advise if addendum to last OV can be completed for sleep apnea to be ordered orif patient should be scheduled for another appointment with you. Thank you! * Telephone Encounter - Sheila Berger - 09/13/2024 9:12 AM EST Pt walked in stating he went to the Dentist here at [facility] and there requesting him to do a sleep study. Pt didn't specify why he needed it done. Best contact number is [phone] tanzanian speaking documented in this encounter Plan of Treatment Upcoming Encounters Date Type Department Care Team (Late st Contact Info) Description 10/04/2024 8:00 AM EDT Office Visit [facility] ADULT DENTAL [address] [place] [address] Simón Arzate, DMD [address] [place] [address] 01/13/2025 3:00 PM EDT Office Visit [facility] ADULT DENTAL [address] [place] [address] Tonya Lim documented as of this encounter Visit Diagnoses Not on filedocumented in this encounter Additional Health Concerns Assessment Noted Time PHQ-9 Depression Total Score: 5 08/30/19 25 9:08 AM EST documented as of this encounter Care Teams Traffic Checker Relationship Specialty Start Date End Date Soraya Andrade MD [address] [place] [address] PCP - General Family Medicine 03/08/23 documented as of this encounter
--- OUTSIDE RECORDS SUMMARY | 2024-09-24 08:11 | XMS_ITS | Encounter Summary ---
Author Organization [employer] Address [address] [facility] 7t [place] [address] Care Team Providers Care Coupon Clerk Name Role Phone Soraya Andrade MD Primary Care Provider [phone] Reason for Visit * Reason Onset Date Comments ELLIE Hudson 09/18/2024 Encounter Details Date Type Department Care Team ([facility] st Contact Info) Description 09/18/2024 Telephone [facility] MEDICINE [address] [place], [place] [phone] Soraya Andrade MD [address] [place] [address] STOPBANG Questionaire Social History Tobacco Use Types Packs/Day Years [...] encounter Miscellaneous Notes * Telephone Encounter - Jennifer Cash MA - 09/18/2024 3:53 PM EST Made in Error Nurse (Aminata) had already palced call for questionnaire. documented in this encounter Plan of Treatment Upcoming Encounters Date Type Department Care Team (Late st Contact Info) Description 10/04/2024 8:00 AM EDT Office Visit [facility] ADULT DENTAL [address] [place] [address] Simón Arzate, GUERO [address] [place] [address] 01/13/2025 3:00 PM EDT Office Visit [facility] ADULT DENTAL [address] [place] [address] Tonya Lim documented as of this encounter Visit Diagnoses Not on filedocumented in this encounter Additional Health Concerns Assessment Noted Time PHQ-9 Depression Total Score: 5 08/30/19 9:08 AM EST documented as of this encounter Care Teams Coupon Clerk Relationship Specialty Start Date End Date Soraya Andrade MD [address] [place] [address] PCP - General Family Medicine 8/23/23 documented as of this encounter
--- OUTSIDE RECORDS SUMMARY | 2024-09-24 08:11 | XMS_ITS | Encounter Summary ---
Author Organization [employer] Address [address] [facility] [address] [place] [address] Care Team Providers Care Airplane Pilot Commercial Name Role Phone Soraya Andrade MD Primary Care Provider [phone] Encounter Details Date Type Department Care Team ([facility] st Contact Info) Description 12/18/2023 Orders Only [facility] MEDICINE [address] [place], [place] [phone] Soraya Andrade MD [address] [place] [address] Social History Tobacco Use Types Packs/Day Years Used Date Smoking Tobacco: Never Smokeless Tobacco: Never Alcohol Use Standard Drinks/Week Comments Never 0 (1 standard drink = 0.6 oz pur e alcohol) Depression Answer Date Recorded Patient Health Questionnaire-9 Score 14 03/10/2023 Housing Stability Answer Date Recorded What is your housing situation today? I have yamilethbaby lainez 05/11/[address] you [...] Description 10/04/2024 8:00 AM EDT Office Visit [facility] ADULT DENTAL [address] [place], [place] [phone] Simón Arzate, GUERO [address] [place] [address] 01/13/2025 3:00 PM EDT Office Visit [facility] ADULT DENTAL [address] [place] [address] Tonya Lim documented as of this encounter Visit Diagnoses Not on filedocumented in this encounter Additional Health Concerns Assessment Noted Time PHQ-9 Depression Total Score: 14 023 11:58 AM EDT documented as of this encounter Care Teams Airplane Pilot Commercial Relationship Specialty Start Date End Date Soraya Andrade MD [address] [place] [address] PCP - General Family Medicine 03/08/23 documented as of this encounter
--- OUTSIDE RECORDS SUMMARY | 2024-09-24 08:11 | XMS_ITS | Encounter Summary ---
Author Organization [employer] Address [address] [facility] [address] [place] [address] Care Team Providers Care News Videotape Editor Name Role Phone Soraya Andrade MD Primary Care Provider [phone] Reason for Visit * Reason Comments Filling Encounter Details Date Type Department Care Team ([facility] st Contact Info) Description 09/23/2024 2:00 PM EDT Office Visit [facility] ADULT DENTAL [address] [place] [address] Simón Arzate, GUERO [address] [place] [address] Social History Tobacco Use Types Packs/Day Years [...] Pressure 134/78 09/23/2024 2:15 PM EDT Pulse - - Temperature - - Respiratory Rate - - Oxygen Saturation - - Inhaled Oxygen Concentration - - Weight - - Height - - Body Mass Index - - documented in this encounter Progress Notes * Simón Arzate DMD - 09/23/2024 2:00 PM EDT Teeth#18,19: 1 carp of Septocaine, buccal infiltration, existed caries is being excavated, Gluma placed, etch and burton, compsoite A-3 is packed, carved, a nd smoothed, occlusion check. Pt satisfied NV: more fillings Ariela documented in this encounter Plan of Treatment Upcoming Encounters Date Type Department Care Team (Late st Contact Info) Description 10/04/2024 8:00 AM EDT Office Visit [facility] ADULT DENTAL [address] [place] [address] Simón Arzate DMD [address] [place] [address] 01/13/2025 3:00 PM EDT Office Visit [facility] ADULT DENTAL [address] [place] [address] Tonya Lim documented as of this encounter Procedures Procedure Name Priority Date/Time Associated Diagnosis Comments 19 JACKELINE RESIN-BASED COMPOSITE - 2 SURF, POSTERIOR Routine 09/23/2024 2:00 PM EDT 18 JACKELINE RESIN-BASED COMPOSITE - 2 SURF, POSTERIOR Routine 09/23/2024 2:00 PM EDT CASE PRESENTATION, DETAILED AND EXTENSIVE TREATMENT PLANNING Routine 09/23/2024 2:00 PM EDT documented in this encounter Visit Diagnoses Not on filedocumented in this encounter Additional Health Concerns Assessment Noted Time PHQ-9 Depression Total Score: 5 08/30/19 25 9:08 AM EST documented as of this encounter Care Teams News Videotape Editor Relationship Specialty Start Date End Date Soraya Andrade MD [address] [place] [address] PCP - General Family Medicine 03/08/23 documented as of this encounter
--- OUTSIDE RECORDS SUMMARY | 2024-09-24 08:11 | XMS_ITS | Encounter Summary ---
Author Organization [employer] Address [address] [facility] [address] [place] [address] Care Team Providers Care Mill Attendant Name Role Phone Soraya Andrade MD Primary Care Provider [phone] Reason for Visit * Reason Comments Med Refill Encounter Details Date Type Department Care Team ([facility] st Contact Info) Description 10/09/2023 Refill [facility] MEDICINE [address] [place], [place] [phone] Soraya Andrade MD [address] [place], [place] [phone] Social History Tobacco Use Types Packs/Day Years [...] Description 10/04/2024 8:00 AM EDT Office Visit [facility] ADULT DENTAL [address] [place] [address] Simón Arzate DMD [address] [place] [address] 01/13/2025 3:00 PM EDT Office Visit [facility] ADULT DENTAL [address] [place] [address] Tonya Lim documented as of this encounter Visit Diagnoses Not on filedocumented in this encounter Additional Health Concerns Assessment Noted Time PHQ-9 Depression Total Score: 14 023 11:58 AM EDT documented as of this encounter Care Teams Mill Attendant Relationship Specialty Start Date End Date Soraya Andrade MD [address] [place] [address] PCP - General Family Medicine 03/08/23 documented as of this encounter
== END 2024-09-24 07:59 | disposition home or self-care (01) ==
LOC: HO.US 07:58
PROVIDERS: PCP General Practice; Visit Provider General Practice
DX: F10.90 Alcohol use, unspecified, uncomplicated (principal)
CPT/HCPCS: 76700

== ENCOUNTER → 2024-09-24 07:59 | Outpatient (BNV) | payer MEDICAID, SELFPAY | PROVIDERS: PCP General Practice; Visit Provider Nuclear Medicine | DX: R10.11 Right upper quadrant pain (principal); F10.90 Alcohol use, unspecified, uncomplicated | CPT/HCPCS: 76700 ==

== ENCOUNTER 2025-06-16 15:02 | Outpatient (REF) | payer MEDICAID, SELFPAY ==
--- NOTE | ~2025-06-16 | XR_ITS ---
EXAMINATION: XR LUMBOSACRAL SPINE CLINICAL INFORMATION: pain with urination COMPARISON: CT topogram from 05/28/2022 TECHNIQUE: Three views of the lumbosacral spine. FINDINGS: There are 5 nonrib-bearing lumbar segments. Vertebral body height and alignment is, altered the prior. There is subtle retrolisthesis at L3-4 and L4-5. No other abnormalities are evident. No abnormal soft tissue ossifications are seen. XR/XR lumbar spine 2-3V IMPRESSION: Stable lumbar spine. Electronically signed by: Gabriel Huerta MD 06/16/2025 04:28 PM [facility]JAN
--- OUTSIDE RECORDS SUMMARY | 2025-06-16 14:15 | XMS_ITS | Encounter Summary ---
Author Organization [employer] [facility] Address [address] [facility] 7t [place] [address] Care Team Providers Care Loom Operator Apprentice Name Role Phone Soraya Andrade MD Primary Care Provider [phone] Reason for Referral * Imaging (Routine) - Authorized Specialty Diagnoses / Procedures Referred By Contac t Referred To Contact Radiology Diagnoses Fatty liver Procedures US Abdomen Complete Soraya Andrade MD [address] [place] [address] Phone: tel: fax: [facility] [address] [place] [address] Phone: tel: fax: Referral ID Status Reason Start Date Expiration Date V isits Requested Visits Authorized [id number] Authorized 06/16/2025 06/16/2026 1 1 Reason for Visit * Reason Comments Follow-up Encounter Details Date Type Department Care Team (Late st Contact Info) Description 06/16/2025 2:15 PM EST Office Visit [facility] [address] [place], [place] [phone] Soraya Andrade MD [address] [place], [place] [phone] Fatty liver (Primary Dx); Chronic bilateral low back pain with left-sided sciatica; Uncomplicated alcohol dependence (CMS/HCC) (HCC); Palpitation; Overweight; Severe anxiety with panic; Smoker; Elevated blood pressure reading in office without diagnosis of hypertension Social History Tobacco Use Types Packs/Day Years Used Date Smoking Tobacco: Some Days Cigarettes Smokeless Tobacco: Never Alcohol Use Standard Drinks/Week Comments Yes 0 (1 standard drink = 0.6 oz pur e alcohol) socially Alcohol Answer Date Recorded How often do you have a drink containing alcohol ? 4 06/16/2025 How many drinks containing a lcohol do you have on a typical day when you are drinking? 3 06/16/2025 How often do you have six or more drinks on one occasion? 3 06/16/2025 Depression Answer Date Recorded Patient Health Questionnaire-9 Score 5 08/30/2024 Patient Health Questionnaire-9 Score 5 08/30/2024 Last PHQ-9: Questionnaire Data Not on file 0 08/30/2024 Housing Stability Answer Date Recorded What is your housing situation today? I have aymileth lainez 07/18/[address] you [...] things needed for daily living? No 07/18/2024 Intimate Partner Violence Answer Date R ecorded Within the last year, have y ou been afraid of your partner or ex-partner? 2 06/16/2025 Within the last year, have y ou been humiliated or emotionally abused in other ways by your partner or ex-partner? 2 Within the last year, have y ou been kicked, hit, slapped, or otherwise physically hurt by your partner or ex-partner? 2 06/16/2025 Within the last year, have y ou been raped or forced to have any kind of sexual activity by your partner or ex-partner? 2 06/16/2025 Utilities Answer Date Recorded In the past [...] Sign Reading Time Taken Comments Blood Pressure 142/88 06/16/2025 3:16 PM EST Pulse 81 06/16/2025 3:16 PM EST Temperature 36.1 C (97 F) 06/16/2025 3:16 PM EST Respiratory Rate 21 06/16/2025 3:16 PM EST Oxygen Saturation 98% 06/16/2025 3:16 PM EST Inhaled Oxygen Concentration - - Weight 90.2 kg (198 lb 12.8 oz) 06/16/2025 3:16 PM EST Height 172.7 cm (5' 8 ) 06/16/2025 3:16 PM EST Body Mass Index 30.23 06/16/2025 3:16 PM EST documented in this encounter Progress Notes * Soraya Andrade MD - 06/16/2025 2:15 PM EST Images from the original note were not included. SUBJECTIVE: Stephen Brar is a 30 y.o. male who presents for chronic disease management. Denies recent illness, ER visit, or hospitalization. Acute Concerns: Back pain at paraspinous muscles of mid-back and lower back, also with intermittent dysuria 2. Drinking 15-20 beers per weekend night, worried about fatty liver (demonstrated on US September 2024) 06/16/25 1631 Urinalysis, Complete, with Reflex to Culture Collected: 06/16/25 1510 Final result Specimen: Urine Color Urine Yellow Nitrite Urine Negative Appearance Urine Clear Leukocyte Esterase Urine Negative PH 6.0 RBC Urine 0-2 /HPF Glucose Urine UA Negative mg/dL Urine WBC 0-5 /HPF Urine Blood Negative Urine Squamous Epithelial Cell 0-2 /HPF Specific [place] - Urine 1.020 Urine Bacteria None Seen Urine Protein Negative mg/dL Hyaline Casts, Urine 0-2 /LPF Urine Ketones Negative mg/dL Interim Updates: Anxiety Was on Fluoxetine from [id number], prescribed Lexapro in early 2024, does not take the medications regularly because he fears addiction and infertility Has a therapist whom he talks with every few weeks of a friend recently, very sad, coping with increased alcohol intake Alcohol Use Disorder Declines treatment with medications or group Insomnia Not sleeping well addicted to Ambien in [facility] avoid benzos, due to above history His STOP BANG score in 4 of 8, will refer for sleep study Peptic ulcer non bleeding Normal EGD at [facility] 05/2023 with only small hiatal hernia On Omeprazole 20mg daily ? Cardiac history from [facility] Normal Echo and Holter here Normal treadmill stress test ER visit 06/2023 for chest pain following cocaine use, normal troponins and EKG FH mom with heart disease, dad healthy, he is one of 12 kids, no known diseases Health Maintenance STI- neg 2023, partner lives [place] another [place] Imms- PCV, Td, Hep B, Flu, COVID offered and declines Patient Active Problem List Diagnosis Date Noted Smoker 06/16/2025 Fatty liver 06/16/2025 Chronic bilateral low back pain with left-sided sciatica 06/16/2025 Elevated blood pressure reading in office without diagnosis of hypertension 06/16/2025 Daytime somnolence 09/18/2024 Overweight 12/20/2023 Chronic gastric ulcer without hemorrhage and without perforation 03/10/2023 Palpitation 03/10/2023 Severe anxiety with panic 03/10/2023 Uncomplicated alcohol dependence (CMS/HCC) (HCC) 03/10/2023 Surgical History[1] Social History Social History Narrative Living with roommates, moved from [facility] in Jun 2022 Working in [employer] Smokes 2 packs of cigs on weekend, binge drinking beer on Sat/Sun (12 beers a day) Review of Systems Constitutional: Negative. HENT: Negative. Respiratory: Negative. Cardiovascular: Positive for palpitations. Gastrointestinal: Negative. Musculoskeletal: Negative. Skin: Negative. Psychiatric/Behavioral: Positive for agitation and dysphoric mood. The patient is nervous/anxious. OBJECTIVE: Vitals: 06/16/25 1516 BP: (!) 142/88 BP Location: Left arm Patient Position: Sitting BP Cuff Size: Large adult Pulse: 81 Resp: 21 Temp: 97 ??F (36.1 ??C) TempSrc: Oral SpO2: 98% Weight: 198 lb 12.8 oz (90.2 kg) Height: 5' 8 (1.727 m) Physical Exam Vitals reviewed. Constitutional: Appearance: Normal appearance. He is normal weight. HENT: Head: Normocephalic and atraumatic. Right Ear: Tympanic membrane, ear canal and external ear normal. Left Ear: Tympanic membrane, ear canal and external ear normal. Nose: Nose normal. Mouth/Throat: Mouth: Mucous membranes are moist. Pharynx: Oropharynx is clear. Eyes: Extraocular Movements: Extraocular movements intact. Conjunctiva/sclera: Conjunctivae normal. Pupils: Pupils are equal, round, and reactive to light. Cardiovascular: Rate and Rhythm: Normal rate and regular rhythm. Pulses: Normal pulses. Heart sounds: Normal heart sounds. Pulmonary: Effort: Pulmonary effort is normal. Breath sounds: Normal breath sounds. Abdominal: General: Abdomen is flat. Bowel sounds are normal. There is no distension. Palpations: Abdomen is soft. Tenderness: There is no abdominal tenderness. Musculoskeletal: General: Normal range of motion. Cervical back: Normal range of motion and neck supple. Skin: General: Skin is warm and dry. Capillary Refill: Capillary refill takes less than 2 seconds. Neurological: General: No focal deficit present. Mental Status: He is alert and oriented to person, place, and time. Psychiatric: Mood and Affect: Mood normal. Behavior: Behavior normal. ASSESSMENT/PLAN Problem List Items Addressed This Visit Palpitation Severe anxiety with panic Uncomplicated alcohol dependence (CMS/HCC) (HCC) Overweight Smoker Relevant Medications nicotine (Nicoderm CQ) 14 MG/24HR patch Fatty liver - Primary Relevant Orders US Abdomen Complete Lipid Panel, Standard Comprehensive Metabolic Panel Urinalysis, Complete, with Reflex to Culture (Completed) Chronic bilateral low back pain with left-sided sciatica Current Assessment & Plan Chronic and intermittent UA negative, no blood or protein to suggest renal involvement Relevant Orders XR Lumbar Spine 2-3 Views (Completed) Elevated blood pressure reading in office without diagnosis of hypertension Current Assessment & Plan Continue to monitor closely in office, patient denies hypertension in other settings, is anxious inhealth care Follow Up: 6 months or sooner prn Guinean Translation: Provided by [facility] staff member CHAYO Saleh Driss Brar was given an AUDIT and/or DAST screen today. Patient's score placed into the harmful (Zone 3) zone. In discussing this issue, the patient reports using alcohol 1 times per day and 4 times per week. My medical advice was that the patient cut back to no more than 1 times in one day and no more than 1per week. Decisional Balance Exercise The patient reports the pros of continued use are: chance to meet with peers The patient reports the ???not-so-good things?? about continued use are: hangovers and pressure from family to stop or cut down The patient reports the pros of change would be: less pressure from family and friends The patient reports the not-so-good things about change would be: isolation from peers, difficulty in social situations, and depressive/anxiety symptoms Readiness Ruler Exercise Patient's readiness to change was 3 on a scale of 1-10, with 1 being the least ready to change and 10 being the most ready to change. We explored why it was not a lower number and discussed patient'sown motivation for change. Patient agreed that patient should cut back to the advised daily and weekly limits. In total 10 minutes of aggregate personnel time was spent administering and interpreting the screen, plus performing a brief intervention. [1] History reviewed. No pertinent surgical history. documented in this encounter Miscellaneous Notes * Assessment & Plan Note - Soraya Andrade MD - 06/16/2025 4:32 PM ESTAssociated Problem(s): Chronic bilateral low back pain with left-sided sciatica Chronic and intermittent UA negative, no blood or protein to suggest renal involvement * Assessment & Plan Note - Soraya Andrade MD - 06/16/2025 4:16 PM ESTAssociated Problem(s): Elevated blood pressure reading in office without diagnosis of hypertension Continue to monitor closely in office, patient denies hypertension in other settings, is anxious inhealth care documented in this encounter Plan of Treatment Scheduled Orders Name Type Priority Associated Diagnoses Orde r Schedule US Abdomen Complete Imaging Routine Fatty liver Expected: 06/16/2025, Expires: 06/16/2026 documented as of this encounter Procedures Procedure Name Priority Date/Time Associated Diagnosis Comments XR LUMBAR SPINE 2-3 VIEWS Routine 06/16/2025 3:48 PM EST Chronic bilateral low back pain with left-sided sciatica URINALYSIS, COMPLETE, WITH REFLEX TO CULTURE Routine 06/16/2025 3:10 PM EST Fatty liver LIPID PANEL, STANDARD Routine 06/16/2025 3:10 PM EST Fatty liver COMPREHENSIVE METABOLIC PANEL Routine 06/16/2025 3:10 PM EST Fatty liver documented in this encounter Results * XR Lumbar Spine 2-3 Views (06/16/2025 3:48 PM EST) Anatomical Region Laterality Modality Spine, L-spine Radiographic Madonna ging 06/16/2025 3:48 PM EST Narrative 06/16/2025 4:30 PM EST [address] [address] XRay Report Signed Patient: Stephen Bynum MR# : [id number] : 1995 Acct:[id number] Age/Sex: 30 / M ADM Date: 06/16/25 Loc: HO.HHCX Attending Dr: Soraya Andrade MD Ordering Physician: Soraya Andrade Date of Service: 06/16/25 Procedure(s): XR lumbar spine 2-3V Accession Number(s): [id number] cc: Soraya Andrade Reason for Exam: pain with urination EXAMINATION: XR LUMBOSACRAL SPINE CLINICAL INFORMATION: pain with urination COMPARISON: CT topogram from 05/28/2022 TECHNIQUE: Three views of the lumbosacral spine. FINDINGS: There are 5 nonrib-bearing lumbar segments. Vertebral body height and alignment is, altered the prior. There is subtle retrolisthesis at L3-4 and L4-5. No other abnormalities are evident. No abnormal soft tissue ossifications are seen. XR/XR lumbar spine 2-3V IMPRESSION: Stable lumbar spine. Electronically signed by: Gabriel Huerta MD 06/16/2025 04:28 PM EST RP Dictated By: Gabriel Huerta MD Signed By: <Electronically signed by Gabreil Huerta MD in OV> 06/16/25 1628 DD/ 1548 TD/TT: 06/16/25 1600 Bank Sales And Service Manager: Procedure Note Donotuseinterpreter, Image - 06/16/[address] [address] XRay Report Signed Patient: Stephen Bynum AMR# : [id number] : 1995Acct:[id number] Age/Sex: 30 / MADM Date: 06/16/25 Loc: HO.HHCX Attending Dr: Soraya Andrade MD Ordering Physician: Soraya Andrade Date of Service: 06/16/25 Procedure(s): XR lumbar spine 2-3V Accession Number(s): [id number] cc: Soraya Andrade Reason for Exam: pain with urination EXAMINATION: XR LUMBOSACRAL SPINE CLINICAL INFORMATION: pain with urination COMPARISON: CT topogram from 05/28/2022 TECHNIQUE: Three views of the lumbosacral spine. FINDINGS: There are 5 nonrib-bearing lumbar segments. Vertebral body height and alignment is, altered the prior. There is subtle retrolisthesis at L3-4 and L4-5. No other abnormalities are evident. No abnormal soft tissue ossifications are seen. XR/XR lumbar spine 2-3V IMPRESSION: Stable lumbar spine. Electronically signed by: Gabriel Huerta MD 06/16/2025 04:28 PM EST RP Dictated By: Gabriel Huerta MD Signed By: <Electronically signed by Gabriel Huerta MD in OV> 06/16/25 1628 DD/ 1548 TD/TT: 06/16/25 1600 Bank Sales And Service Manager: Soraya Andrade MD IMG XR PROCEDURES Final Result * Urinalysis, Complete, with Reflex to Culture (06/16/2025 3:10 PM EST) Color Urine Yellow [facility] Appearance Urine Clear [facility] PH 6.0 5.0 - 9.0 [facility] Glucose Urine UA Negative Negative mg/dL [facility] Urine Blood Negative Negative [facility] Specific [place] - Urine 1.020 1.005 - 1.025 [facility] Urine Protein Negative Neg-Trace mg/dL [facility] Urine Ketones Negative Negative mg/dL [facility] Nitrite Urine Negative Negative [facility] Leukocyte Esterase Urine Negative Negative [facility] RBC Urine 0-2 0 - 2 /HPF [facility] Urine WBC 0-5 0 - 5 /HPF [facility] Urine Squamous Epithelial Cell 0-2 0 - 2 /HPF [facility] Urine Bacteria None Seen None Seen [facility] Hyaline Casts, Urine 0-2 0 - 2 /LPF [facility] Urine 06/16/2025 3:10 PM EST 06/16/2025 4:05 PM EST Narrative [facility] - 06/16/2025 4:30 PM EST Urine, Clean Catch us Soraya Andrade MD LAB URINE ORDERABLES Final Res ult [facility] [address] [place] [address] [phone] * (ABNORMAL) Comprehensive Metabolic Panel (06/16/2025 3:10 PM EST) Sodium 141 135 - 145 mmol/L [facility] Potassium 4.1 3.3 - 5.1 mmol/L [facility] Chloride 105 96 - 108 mmol/L [facility] Carbon Dioxide 29 22 - 29 mmol/L [facility] Anion Gap 11(L) 12 - 20 [facility] Urea Nitrogen (BUN) 13 9 - 16 mg/dL [facility] Creatinine, Serum 1.07 0.5 - 1.4 mg/dL [facility] Estimated Glomerular Filt Rate >60 [facility] Comment:Chronic Kidney Disea se: Estimated GFR < 60 mL/min/1.61i5Kvejry Kidney Disease: Estimated GFR < 15 mL/min/1.73m2 Glucose 121(H) 60 - 115 mg/dL [facility] Calcium 9.5 8.4 - 10.2 mg/dL [facility] Bilirubin, Total 2.3(H) 0.0 - 1.0 mg/dL [facility] Comment:Slight Icterus. Aspartate Amino Transferase 37 5 - 37 U/L [facility] Alanine Aminotransferase 65(H) 0 - 40 U/L [facility] Total Protein 7.6 6.5 - 8.0 g/dL [facility] Albumin Level 4.8 3.5 - 5.0 g/dL [facility] Alkaline Phosphatase 70 39 - 117 U/L [facility] Blood Venous blood specimen / Unknown 06/16/2025 3:10 PM EST 06/16/2025 4:11 PM EST us Soraya Andrade MD LAB BLOOD ORDERABLES Final Res ult [facility] [address] [place] [phone] [phone] * (ABNORMAL) Lipid Panel, Standard (06/16/2025 3:10 PM EST) Triglycerides 695(H) <150 mg/dL [facility] Comment:Desirable Triglyceri de: less than 150 mg/dLBorderline High Triglyceride 150-199 mg/dLHigh Triglyceride: 200-499 mg/dLVery High Triglyceride: greater than or equal to 5OO mg/dL Cholesterol 202(H) <200 mg/dL [facility] Comment:Desirable Cholestero l: less than 200 mg/dLBorderline High Cholesterol: 200-239 mg/dLHigh Cholesterol: greater than 239 mg/dL LDL Cholesterol Calculated TNP <100 mg/dL [facility] Comment:Unable to calculate the LDL. The formula of Friedwald,Cramer, and Mariely is only valid if the triglycerides areless than 400 mg/dl. HDL Cholesterol 30(L) >40 mg/dL [facility] Comment:Desirable HDL: great er than 40 mg/dL Note: This HDL assay may give artificially low results in patients with liver disease. Blood Venous blood specimen / Unknown 06/16/2025 3:10 PM EST 06/16/2025 4:11 PM EST us Soraya Andrade MD LAB BLOOD ORDERABLES Final Res ult [facility] [address] [place] [phone] documented in this encounter Visit Diagnoses Diagnosis Fatty liver- Primary Other chronic nonalcoholic liver disease Chronic bilateral low back pain with left-sided sciatica Uncomplicated alcohol dependence (CMS/HCC) (HCC) Palpitation Palpitations Overweight Severe anxiety with panic Smoker Tobacco use disorder Elevated blood pressure reading in office without diagnosis of hypertension documented in this encounter Additional Health Concerns Assessment Noted Time PHQ-9 Depression Total Score: 5 08/30/19 25 9:08 AM EST documented as of this encounter Care Teams Loom Operator Apprentice Relationship Specialty Start Date End Date Soraya Andrade MD [address] [place] [phone] PCP - General Family Medicine 03/08/23 documented as of this encounter
[2025-06-16 16:27] LABS: Appearance Urine Clear; Glucose Urine UA Negative (Negative); PH 6.0 (5.0-9.0); Specific Gravity - Urine 1.020 (1.005-1.025)
[2025-06-16 16:43] LABS: Alanine Aminotransferase 65 U/L (0-40); Albumin Level 4.8 g/dL (3.5-5.0); Alkaline Phosphatase 70 U/L (39-117); Anion Gap 11 (12-20); Aspartate Amino Transferase 37 U/L (5-37); Blood Urea Nitrogen 13 mg/dL (9-16); Calcium 9.5 mg/dL (8.4-10.2); Carbon Dioxide 29 mmol/L (22-29); Chloride 105 mmol/L (96-108); Cholesterol 202 mg/dL (<200); Estimated Glomerular Filt Rate > 60; HDL Cholesterol 30 mg/dL (>40); Potassium 4.1 mmol/L (3.3-5.1); Sodium 141 mmol/L (135-145); Total Protein 7.6 g/dL (6.5-8.0); Triglycerides 695 mg/dL (<150)
--- OUTSIDE RECORDS SUMMARY | 2025-06-16 18:13 | XMS_ITS | Encounter Summary ---
Author Organization [employer] Address [address] [place] [address] [address] [place] [address] Care Team Providers Care Public Interviewer Name Role Phone Soraya Andrade MD Primary Care Provider [phone] Reason for Referral * Hospital - Outpatient (Routine) - Closed Specialty Diagnoses / Procedures Referred By Contkyle t Referred To Contact Diagnoses Daytime somnolence Overweight Procedures Polysomnography Soraya Andrade MD [address] [place] [address] Phone: tel: fax: [facility] [address] [place] [address] Phone: tel: fax: Referral ID Status Reason Start Date Expiration Date Visits Re quested Visits Authorized [id number] Closed 10/28/2024 10/28/2025 1 1 Encounter Details Date Type Department Care Team (Late st Contact Info) Description 10/28/2024 Orders Only [facility] [address] [place], [place] [phone] Soraya Andrade MD [address] [place] [address] Daytime somnolence (Primary Dx); Overweight Social History Tobacco Use Types Packs/Day Years [...] as of this encounter Plan of Treatment Scheduled Orders Name Type Priority Associated Diagnoses Orde r Schedule Polysomnography [facility] Routine Daytime somnolence Overweight Expected: 10/28/2024 (Approximate), Expires: 10/28/2025 documented as of this encounter Visit Diagnoses Diagnosis Daytime somnolence- Primary Overweight documented in this encounter Additional Health Concerns Assessment Noted Time PHQ-9 Depression Total Score: 5 08/30/19 25 9:08 AM EST documented as of this encounter Care Teams Public Interviewer Relationship Specialty Start Date End Date Soraya Andrade MD [address] [place] [id number] PCP - General Family Medicine 03/08/23 documented as of this encounter
--- OUTSIDE RECORDS SUMMARY | 2025-06-16 18:13 | XMS_ITS | Encounter Summary ---
Author Organization [employer] Address [address] [facility] 7t [place] [address] Care Team Providers Care Extension Service Advisor Name Role Phone Soraya Andrade MD Primary Care Provider [phone] Reason for Visit * Reason Comments Med Refill Encounter Details Date Type Department Care Team ([facility] st Contact Info) Description 10/09/2023 Refill [facility] [address] [place], [place] [phone] Soraya Andrade MD [address] [place], [place] [phone] Social History Tobacco Use Types Packs/Day Years [...] as of this encounter Plan of Treatment Not on file documented as of this encounter Visit Diagnoses Not on filedocumented in this encounter Additional Health Concerns Assessment Noted Time PHQ-9 Depression Total Score: 14 023 11:58 AM EDT documented as of this encounter Care Teams Extension Service Advisor Relationship Specialty Start Date End Date Soraya Andrade MD [address] [place] [phone] PCP - General Family Medicine 03/08/23 documented as of this encounter
--- OUTSIDE RECORDS SUMMARY | 2025-06-16 18:13 | XMS_ITS | Encounter Summary ---
Author Organization [employer] Address [address] [facility] [address] [place] [address] Care Team Providers Care Machine Rigger Name Role Phone Soraya Andrade MD Primary Care Provider [phone] Encounter Details Date Type Department Care Team ([facility] st Contact Info) Description 12/18/[address] [facility] [address] [place], [place] [phone] Soraya Andrade MD [address] [place] [address] Social History Tobacco Use Types Packs/Day Years Used Date Smoking Tobacco: Never Smokeless Tobacco: Never Alcohol Use Standard Drinks/Week Comments Never 0 (1 standard drink = 0.6 oz pur e alcohol) Depression Answer Date Recorded Patient Health Questionnaire-9 Score 14 03/10/2023 Housing Stability Answer Date Recorded What is your housing situation today? I have yamileth migel 05/11/[address] you li [...] documented as of this encounter Care Teams Machine Rigger Relationship Specialty Start Date End Date Soraya Andrade MD [address] [place] [address] PCP - General Family Medicine 03/08/23 documented as of this encounter
--- OUTSIDE RECORDS SUMMARY | 2025-06-16 18:13 | XMS_ITS | Encounter Summary ---
Author Organization [employer] Address [address] [facility] [address] [place] [address] Care Team Providers Care Industrial Tractor Driver Name Role Phone Soraya Andrade MD Primary Care Provider [phone] Encounter Details Date Type Department Care Team (Latest Contact Info) Description 06/16/2025 Travel Social History Tobacco Use Types Packs/Day [...] documented as of this encounter Care Teams Industrial Tractor Driver Relationship Specialty Start Date End Date Soraya Andrade MD [address] [place] [address] PCP - General Family Medicine 03/08/23 documented as of this encounter
--- OUTSIDE RECORDS SUMMARY | 2025-06-16 18:13 | XMS_ITS | Clinical Summary ---
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 methocarbamol (Robaxin) 750 MG tabletIndicatio ns:Non-specific low back pain Take 1 tablet (750 mg) by mouth 4 times daily for 10 days. 40 tablet 4 Active atorvastatin (Lipitor) 40 MG tablet TAKE 1 TABLET BY MOUTH EVERY DAY 90 tablet 3 4 Active escitalopram (Lexapro) 5 MG tablet Take 1 tablet (5 mg) by mouth Once per day. 90 tablet 3 5 Active omeprazole (PriLOSEC) [address] capsuleIndicati ons:Gastroesoph ageal reflux disease without esophagitis Take 1 capsule (20 mg) by mouth Once per day. 90 capsule 3 5 Active Acetaminophen Extra Strength 500 MG tablet Take 1 tablet (500 mg) by mouth every 6 (six) hours if needed (pain). 60 tablet 11 5 Active meloxicam (Mobic) 15 MG tabletIndicatio ns:Non-specific low back pain TAKE 1 TABLET BY MOUTH EVERY DAY 90 tablet 3 5 Active nicotine (Nicoderm CQ) 14 MG/24HR patchIndication s:Smoker Place 1 patch on the skin 1 (one) time each day at the same time. 30 patch 3 5 026 Active lidocaine (Lidoderm) 5 % patch PLEASE SEE ATTACHED FOR DETAILED DIRECTIONS 3 025 Discontin ued(Thera py completed ) Menthol-Methyl Salicylate (Muscle Rub) 10-15 % cream Apply 1 Application topically if needed in the morning and at bedtime (pain). 85 g 4 025 Discontin ued(Thera py completed ) Active Problems Problem Noted Date Diagnosed Date Smoker 06/16/2025 Fatty liver 06/16/2025 Chronic bilateral low back pain with left-sided sciatica 06/16/2025 Assessment & Plan (06/16/2025 4:32 PM EST): Chronic and intermittent UA negative, no blood or protein to suggest renal involvement Elevated blood pressure read ing in office without diagnosis of hypertension 06/16/2025 Assessment & Plan (06/16/2025 4:16 PM EST): Continue to monitor closely in office, patient denies hypertension in other settings, is anxious in health care Daytime somnolence 09/18/2024 Overview (09/18/2024): STOP BANG [...] trauma in childhood, move from [place] ([place]) to [place] a year and two months ago, financial [...] seek help. PLAN: 1. Follow up with [facility]: Not recommended for follow-up 2. Patient goal is to improve mental health to manage symptoms 3. Behavioral Recommendations a. Ind. Therapy, referral will be submitted b. Use of coping skills provided as recommended. c. [facility] contact number for support. Uncomplicated alcohol dependence (CMS/HCC) 03/10 Assessment & Plan (12/20/2023 4:20 PM EDT): Recommended decreasing sugary drinks to 1-2 daily as this can affect his mood and weight Encounters Date Type Department Care Team Description 06/16/2025 2:15 PM EST Office Visit [facility] [address] [place] [phone] Soraya Andrade MD Fatty liver (Primary Dx); Chronic bilateral low back pain with left-sided sciatica; Uncomplicated alcohol dependence (CMS/HCC) (HCC); Palpitation; Overweight; Severe anxiety with panic; Smoker; Elevated blood pressure reading in office without diagnosis of hypertension 06/16/2025 Travel from Last 3 Months Immunizations Immunization Administration Dates Next Due Influenza, seasonal, injectable, preservative fr ee 08/30/2024 Pfizer Covid-19 Vaccine 1208/30/2024 Social History Tobacco Use Types Packs/Day Years [...] your housing situation today? I have yamileth sing 07/18/[address] you li [...] Mass Index 30.23 06/16/2025 3:16 PM EST Plan of Treatment Health Maintenance Due Date Last Done Comments Dental Prophylaxis 1993 Disability Screening 1993 HPV Vaccines (1 - Male 3-dos e series) 2008 DTaP/Tdap/Td Vaccines (1 - Tdap) 2012 Hepatitis A Vaccines (1 of 2 - Risk 2-dose series) 2012 Hepatitis B Vaccines (1 of 3 - 19+ 3-dose series) 2012 Pneumococcal Vaccine: Pediatrics (0 to 5 Years) and At-Risk Patients (6 to 49) Years (1 of 2 - PCV) 2012 Dental Oral Exam 03/14/2025 09/13/2024 COVID-19 Vaccine (2 - 2024-2 6 season) 2025 08/30/2024 Influenza Vaccine (#1) 2025 08/30/2024 SDOH Screening 07/18/2025 07/18/2024 Depression Screening 08/30/2025 08/30/2024, 08/30/2024 Family Planning (PISQ) 08/30/2025 08/30/2024 Dental X-Ray: Bitewings 09/14/2025 09/13/2024 Alcohol/Substance Use Screening 06/16/2026 06/16/2025 Tobacco Screening 06/16/2026 06/16/2025 Dental X-Ray: Full Mouth 09/14/2027 09/13/2024 Lipid Panel 08/30/2029 06/16/2025, 08/30/2024, 12/18/2023 Zoster Vaccines (1 of 2) 2043 RSV Patients and Patients Aged 60 years or older (1 - 1-dose 75+ series) 2068 HIV Screening Completed 08/30/2024 Hepatitis C Screening Completed 08/30/2024 HIB Vaccines Aged Out No longer eligi ble based on patient's age to complete this topic IPV Vaccines Aged Out No longer eligi ble based on patient's age to complete this topic Meningococcal B Vaccine Aged Out No l onger eligible based on patient's age to complete [...] Routine 06/16/2025 3:10 PM EST Fatty liver INTRAORAL - COMPLETE SERIES OF RADIOGRAPHIC IMAGES Routine 09/13/2024 8:00 AM EST COMPREHENSIVE ORAL EVALUATION - NEW OR ESTABLISHED PATIENT Routine 09/13/2024 8:00 AM EST HEPATITIS C AB W/REFL TO HCV RNA, QN, PCR Routine 08/30/2024 9:55 AM EST Alcohol use disorder HIV 1/2 ANTIGEN/ANTIBODY, FOURTH GENERATION W/RFL Routine 08/30/2024 9:55 AM EST Alcohol use disorder from Last 3 Months or Most Recently Relevant to Health Maintenance Results * XR Lumbar Spine 2-3 Views (06/16/2025 3:48 PM EST) Anatomical Region Laterality Modality Spine, L-spine Radiographic Madonna ging 06/16/2025 3:48 PM EST Narrative 06/16/2025 4:30 PM EST [address] [address] XRay Report Signed Patient: Stephen Bynum MR# : [id number] : 1995 Acct:[id number] Age/Sex: 30 / M ADM Date: 06/16/25 Loc: [facility] Attending Dr: Soraya Andrade MD Ordering Physician: Soraya Andrade Date of Service: 06/16/25 Procedure(s): XR lumbar spine 2-3V Accession Number(s): [id number] cc: Soraya Andrade Reason for Exam: pain [...] Gabriel Huerta MD 06/16/2025 04:28 PM EST Dictated By: Gabriel Huerta MD Signed By: <Electronically signed by Gabriel Huerta MD in OV> 06/16/25 1628 DD/ 1548 TD/TT: 06/16/25 1600 Acid Maker: Procedure Note Donotuseinterpreter, Image - 06/16/[address] [address] XRay Report Signed Patient: Stephen Bynum AMR# : [id number] : 1995Acct:[id number] Age/Sex: 30 / MADM Date: 06/16/25 Loc: [facility] Attending Dr: Soraya Andrade MD Ordering Physician: Soraya Andrade Date of Service: 06/16/25 Procedure(s): XR lumbar spine 2-3V Accession Number(s): [id number] cc: Soraya Andrade Reason for Exam: pain [...] 06/16/25 1628 DD/ 1548 TD/TT: 06/16/25 1600 Acid Maker: us Soraya Andrade MD IMG XR PROCEDURES Final Result * Urinalysis, Complete, with Reflex to Culture (06/16/2025 3:10 PM EST) Color Urine Yellow [facility] Appearance Urine Clear [facility] PH 6.0 5.0 - 9.0 [facility] Glucose Urine UA Negative Negative mg/dL [facility] Urine Blood Negative Negative [facility] Specific [place] - Urine 1.020 1.005 - 1.025 [facility] Urine Protein Negative Neg-Trace mg/dL [facility] Urine Ketones Negative Negative mg/dL [facility] Nitrite Urine Negative Negative [facility] Leukocyte Esterase Urine Negative Negative [facility] RBC Urine 0-2 0 - 2 /HPF [facility] Urine WBC 0-5 0 - 5 /HPF [facility] Urine Squamous Epithelial Cell 0-2 0 - 2 /HPF [facility] Urine Bacteria None Seen None Seen [facility] Hyaline Casts, Urine 0-2 0 - 2 /LPF [facility] Urine 06/16/2025 3:10 PM EST 06/16/2025 4:05 PM EST Narrative [facility] - 06/16/2025 4:30 PM EST Urine, Clean Catch us Soraya Andrade MD LAB URINE ORDERABLES Final Res ult Performing Organization Address City/[facility]/ZIP Co de Phone Number [facility] [address] [place] [address] [phone] * (ABNORMAL) Lipid Panel, Standard (06/16/2025 3:10 PM EST) Triglycerides 695(H) <150 mg/dL [facility] Comment:Desirable Triglyceri de: less than 150 mg/dLBorderline High Triglyceride 150-199 mg/dLHigh Triglyceride: 200-499 mg/dLVery High Triglyceride: greater than or equal to 5OO mg/dL Cholesterol 202(H) <200 mg/dL [facility] Comment:Desirable Cholestero l: less than 200 mg/dLBorderline High Cholesterol: 200-239 mg/dLHigh Cholesterol: greater than 239 mg/dL LDL Cholesterol Calculated TNP <100 mg/dL [facility] Comment:Unable to calculate the LDL. The formula of Friedwald,Cramer, and Mariely is only valid if the triglycerides areless than 400 mg/dl. HDL Cholesterol 30(L) >40 mg/dL [facility] Comment:Desirable HDL: great er than 40 mg/dL Note: This HDL assay may give artificially low results in patients with liver disease. Blood Venous blood specimen / Unknown 06/16/2025 3:10 PM EST 06/16/2025 4:11 PM EST us Soraya Andrade MD LAB BLOOD ORDERABLES Final Res ult Performing Organization Address City/[facility]/ZIP Co de Phone Number [facility] [address] [place] [address] [phone] * (ABNORMAL) Comprehensive Metabolic Panel (06/16/2025 3:10 PM EST) Sodium 141 135 - 145 mmol/L [facility] Potassium 4.1 3.3 - 5.1 mmol/L [facility] Chloride 105 96 - 108 mmol/L [facility] Carbon Dioxide 29 22 - 29 mmol/L [facility] Anion Gap 11(L) 12 - 20 [facility] Urea Nitrogen (BUN) 13 9 - 16 mg/dL [facility] Creatinine, Serum 1.07 0.5 - 1.4 mg/dL [facility] Estimated Glomerular Filt Rate >60 [facility] Comment:Chronic Kidney Disea se: Estimated GFR < 60 mL/min/1.08k6Yzmizi Kidney Disease: Estimated GFR < 15 mL/min/1.73m2 Glucose 121(H) 60 - 115 mg/dL [facility] Calcium 9.5 8.4 - 10.2 mg/dL [facility] Bilirubin, Total 2.3(H) 0.0 - 1.0 mg/dL [facility] Comment:Slight Icterus. Aspartate Amino Transferase 37 5 - 37 U/L [facility] Alanine Aminotransferase 65(H) 0 - 40 U/L [facility] Total Protein 7.6 6.5 - 8.0 g/dL [facility] Albumin Level 4.8 3.5 - 5.0 g/dL [facility] Alkaline Phosphatase 70 39 - 117 U/L [facility] Blood Venous blood specimen / Unknown 06/16/2025 3:10 PM EST 06/16/2025 4:11 PM EST us Soraya Andrade MD LAB BLOOD ORDERABLES Final Res ult [facility] [address] [place] [phone] * Hepatitis C Antibody with Reflex to HCV, RNA, Quantitative, Real-Time PCR (08/30/2024 9:55 AM EST) Hepatitis C Antibody Nonreactive Nonreactive [facility] Comment:Antibodies to HCV no t detected; does not exclude early acuteHCV infection. Blood Venous blood specimen / Unknown 08/30/2024 9:55 AM EST 08/30/2024 10:59 AM EST us Soraya Andraed MD LAB BLOOD ORDERABLES Final Res ult Performing Organization Address [facility] [[email or web address]] Co de Phone Number [facility] [address] [place] [address] [phone] * HIV-1/2 Antigen and Antibodies, Fourth Generation, with Reflexes (08/30/2024 9:55 AM EST) [facility] HIV AB/AG Nonreactive Nonreactive [facility] Comment:HIV-1 p24 Ag and/or HIV-1/HIV-2 Ab not detected.A test result that is nonreactive does not exclude thepossibility of exposure to or infection with HIV-1 and/orHIV-2. Nonreactive results in this assay for individualswith prior exposure to HIV-1 and/or HIV-2 may be due toantigen and antibody levels that are below the limit ofdetection of this assay.The [employer] HIV Ag/Ab Combo assay result andsupplemental assay results should be interpreted inconjunction with the patient's clinical presentation,history and other laboratory results. If the results areinconsistent with clinical evidence, additional testing issuggested to confirm the result. 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
== END 2025-06-16 15:03 | disposition home or self-care (01) ==
LOC: HO.HHCX 15:02
PROVIDERS: PCP General Practice; Visit Provider General Practice
DX: G89.29 Other chronic pain (principal); M54.42 Lumbago with sciatica, left side; K76.0 Fatty (change of) liver, not elsewhere classified
CPT/HCPCS: 36415; 72100; 80053; 80061; 81001

== ENCOUNTER → 2025-06-16 15:26 | Outpatient (BNV) | payer MEDICAID, SELFPAY | PROVIDERS: PCP General Practice; Visit Provider Radiology Diagnostic Radiology | DX: R30.0 Dysuria (principal) | CPT/HCPCS: 72100 ==